=== PATIENT | male | born 1955 | race Caucasian/White ===

== ENCOUNTER 2017-10-25 10:00 | Inpatient (IN) | payer OTHER ==
[2017-10-31] MEDS ORDERED: Buffered Lidocaine 0.9% SYRIN* 5 ML/SYR SYRINGE INTRADERM ONE (11:22)
--- OUTSIDE RECORDS SUMMARY | 2017-11-01 06:09 | XMS REPORT ---
:1955 External Reference #:[id number] Author Organization [facility] Address [address] [address] Phone [phone] Care Team Providers Name Role Phone Michael Wang MD Primary Care Physician Unavailable Payers Type Date Identification Numbers Payment Provider Subscriber Commercial Policy Number: [id number] Alejo Lutz PayID: [id number] [address] [place] [address] Commercial Expires: 2017 Policy Number: [id number] Alejo Lutz Group Name: [id number] [address] PayID: [id number] [place] [address] Problems Date Description Provider Status Onset: 12/17/2014 Chronic obstructive lung disease Alex Metzger M.D. Active Onset: 12/17/2014 Gastroesophageal reflux disease Alex Metzger M.D. Active Onset: 12/17/2014 Depressive disorder Alex Metzger M.D. Active Onset: 12/17/2014 Anxiety Alex Metzger M.D. Active Onset: 12/17/2014 Chronic back pain Alex Metzger M.D. Active Onset: 12/17/2014 Neck pain Alex Metzger M.D. Active Onset: 12/17/2014 Multiple joint pain Alex Metzger M.D. Active Onset: 06/25/2015 Cervical spondylosis without Jose Juan Tang M.D. Active myelopathy Onset: 06/25/2015 Lumbosacral spondylosis without Jose Juan Tang M.D. Active myelopathy Onset: 08/03/2017 Strain of musc/tend the rotator Faith Paul MD Active cuff of left shoulder, subs Onset: 09/13/2017 Disorder of shoulder Faith Paul MD Active Onset: 09/13/2017 Localized, primary osteoarthritis Faith Paul MD Active of the shoulder region Onset: 09/13/2017 Low back pain Faith Paul MD Active Onset: 09/28/2017 Thoracic and lumbosacral neuritis Michael Wang M.D. Active Onset: 09/28/2017 Chest pain Michael Wang M.D. Active Onset: 09/28/2017 Recurrent major depressive episodes Michael Wang M.D. Active Onset: 10/10/2017 Lumbar spondylolisthesis Marla Cason MD Active Onset: 10/10/2017 Tobacco user Marla Cason MD Active Onset: 10/25/2017 Anxiety state Doyle Ureña M.D. Active Family History Date Family Member(s) Problem(s) Comments General Heart Disease : (age 61 Father due to Heart Years) attack : (age 89 Mother due to Old age? Years) Onset: (10/18/2017) Siblings 5 3 brothers, 2 sisters no premature cad. 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 smokes every day Recreational Drug Use Current Drug User Daily Caffeine Consumes on average 2 cups of regular coffee per day Exercise Type/Frequency Streching back General Hx Text raised 5 adopted children/grown. rents a room from friends 2017 Allergies, Adverse Reactions, Alerts Date Description Reaction Status Severity Comments 11/25/2014 NKDA active Medications Medication Date Status Form Strength Qnty SIG Indications Ordering Provider Tramadol HCL Active Tablets 50mg 30tabs 1 tab M51.16 Michael 017 evening and Kathleen, hs prn M.D. Sertraline 08/01/2 Active Tablets 25mg 60tabs 2 tab daily F43.23 Zsofia HCL 017 Angel, GEOSCIENCE LABORATORY TECHNICIAN Diclofenac 10/25/2 Active Gel 1% 100gm apply 4 M25.519 Zsofia Sodium 017 grams on Angel, shoulders GEOSCIENCE LABORATORY TECHNICIAN twice daily Tylenol Active Tablets 325mg 120tabs 2 tablets M54.5 Weston 016 every 4 Portuguese, PAPER WINDER hours as needed pain Naproxen Active Tablets 500mg 60tabs 1 tablet by M54.9 Emerson 015 mouth twice Pachikara, a day with M.D. foods as needed pain M54.5 Omeprazole 12/17/2014 Active Capsules 20mg 30caps take one K21.[address] capsule by Portuguese, mouth PAPER WINDER every day prn Meclizine HCL 04/24/2016 - Hx Tablets 25mg 30tabs 1 tablet H81.10 Weston 11/23/2016 every 6 Portuguese, hours as PAPER WINDER needed Sertraline HCL 04/24/2016 - Hx Tablets 25mg 60tabs Not taking F33.9 Weston 11/23/2016 1 by mouth Portuguese, every day PAPER WINDER x 1 week then 2 tab daily Cheratussin ac 04/22/2015 - Hx Syrup 100-10 240ml 1-2 786.2 Weston 05/06/2015 mg/5ML teaspoon Portuguese, by mouth PAPER WINDER every 4 to 6 hours as needed cough Cetirizine HCL 04/22/2015 - Hx Chewtabs 10mg 30units 1 tablet 786.2 Weston 01/10/2016 by mouth Portuguese, daily in PAPER WINDER the morning Tramadol HCL 12/31/2014 - Hx Tablets 50mg 30tabs 1 by mouth 724.5 Alex 01/20/2015 twice a Metzger, day, as M.D. needed Spiriva 12/17/2014 - Hx Capsules 18mcg 60caps 1 puff by 496 Alex Handihaler 01/10/2016 mouth Metzger, daily M.D. Proair HFA 12/17/2014 - Hx Aerosol 108(90 1units 2 puffs by 496 Alex 01/10/2016 Base) mouth Metzger, mcg/Ac every 4 M.D. t hours as needed Cyclobenzaprine 12/17/2014 - Hx Tablets 10mg 45tabs one by 724.5 Alex HCL 04/24/2016 mouth Metzger, three M.D. times a day as needed spasm 2 11/25/2014 - Hx Tablets 500mg 60tabs 1 tablet Erica 12/16/2014 with food Dwaine, by mouth M.D. twice a day Naproxen 11/25/2014 - Hx Tablets 500mg 60tabs 1 tablet Erica 12/31/2014 with food Dwaine, by mouth M.D. twice a day Naproxen 11/25/2014 - Hx Tablets 500mg 60tabs 1 by mouth Erica 12/31/2014 twice a Dwaine, day as M.D. needed Oxycodone HCL - Hx Unknown 12/16/2014 Naproxen - Hx Tablets 500mg 1 tablet Unknown 11/25/2014 with food by mouth twice a day Ibuprofen - Hx Capsules 200mg as needed M54.5 Unknown 07/21/2016 Medications Administered in Office Medication Date Status Form Strength Qnty SIG Indications Ordering Provider Technetium TC 10/23/ Administered Injection Inga 99M Tetrofosmin, 2017 Diogo, Per Unit Dose Up M.D. To 40 Millicuries Technetium TC 10/23/ Administered Injection Inga 99M Tetrofosmin, 2018 Fillmore, Per Unit Dose Up M.D. To 40 Millicuries Triamcinolone 08/03/ Administered Injection Zaneb (Kenalog) 2016 MD Humberto Immunizations CPT Code Status Date Vaccine Lot # [id number] Given 09/28/2017 Influenza Virus Vaccine, Quadrivalent, Split, [id number] Preservative Free [id number] Given 12/31/2014 Pneumonia Vaccine [id number] Vital Signs Date Vital Result Comment 10/25/2017 Height 72 inches 6'0" Weight 169.00 lb Heart Rate 67 /min BP Systolic Sitting 114 mmHg BP Diastolic Sitting 72 mmHg Body Temperature 96.3 F O2 % BldC Oximetry 94 % BMI (Body Mass Index) 22.9 kg/m2 10/18/2017 Height 72 inches 6'0" Weight 167.00 lb Heart Rate 72 /min BP Systolic Sitting 118 mmHg LA, reg BP Diastolic Sitting 78 mmHg LA, reg BMI (Body Mass Index) 22.6 kg/m2 10/10/2017 Height 72 inches 6'0" Weight 168.00 lb Heart Rate 72 /min BP Systolic Sitting 130 mmHg BP Diastolic Sitting 82 mmHg Pain Level 2 BMI (Body Mass Index) 22.8 kg/m2 09/28/2017 Heart Rate 66 /min BP Systolic Sitting 126 mmHg BP Diastolic Sitting 82 mmHg Body Temperature 96.9 F O2 % BldC Oximetry 95 % 09/28/2017 Weight 168.50 lb 09/18/2017 Height 72 inches 6'0" Weight 170.00 lb Heart Rate 91 /min BP Systolic Sitting 128 mmHg BP Diastolic Sitting 78 mmHg Pain Level 6 BMI (Body Mass Index) 23.1 kg/m2 09/13/2017 Height 72 inches 6'0" Weight 171.00 lb per pt Heart Rate 66 /min reg BP Systolic Sitting 112 mmHg Rue, reg cuff BP Diastolic Sitting 76 mmHg Rue, reg cuff Respiratory Rate 16 /min Body Temperature 97.3 F tympanic Pain Level 7 ledft shoulder BMI (Body Mass Index) 23.2 kg/m2 2017 Height 72 inches 6'0" Weight 172.00 lb Heart Rate 68 /min BP Systolic Sitting 98 mmHg LA reg cuff BP Diastolic Sitting 66 mmHg LA reg cuff Body Temperature 98.2 F O2 % BldC Oximetry 95 % BMI (Body Mass Index) 23.3 kg/m2 08/03/2017 Height 72 inches 6'0" Weight 176.00 lb BP Systolic 130 mmHg BP Diastolic 82 mmHg Respiratory Rate 20 /min Pain Level 8 BMI (Body Mass Index) 23.9 kg/m2 08/01/2017 Weight 176.00 lb Heart Rate 69 /min BP Systolic Sitting 120 mmHg BP Diastolic Sitting 80 mmHg Body Temperature 97.5 F O2 % BldC Oximetry 98 % 11/23/2016 Height 72 inches 6'0" Weight 171.50 lb Heart Rate 84 /min BP Systolic Sitting 106 mmHg BP Diastolic Sitting 78 mmHg Body Temperature 97.5 F O2 % BldC Oximetry 98 % BMI (Body Mass Index) 23.3 kg/m2 07/21/2016 Height 72 inches 6'0" Weight 178.38 lb Heart Rate 74 /min BP Systolic Sitting 108 mmHg BP Diastolic Sitting 90 mmHg Body Temperature 98.3 F O2 % BldC Oximetry 98 % BMI (Body Mass Index) 24.2 kg/m2 04/24/2016 Height 72 inches 6'0" Weight 184.00 lb Heart Rate 86 /min BP Systolic Sitting 130 mmHg BP Diastolic Sitting 80 mmHg BP Systolic Standing 112 mmHg BP Diastolic Standing 78 mmHg BP Systolic Lying Down 110 mmHg BP Diastolic Lying Down 82 mmHg O2 % BldC Oximetry 98 % BMI (Body Mass Index) 25.0 kg/m2 01/10/2016 Height 72 inches 6'0" Weight 188.00 lb Heart Rate 82 /min BP Systolic Sitting 106 mmHg BP Diastolic Sitting 78 mmHg Body Temperature 98.8 F O2 % BldC Oximetry 94 % BMI (Body Mass Index) 25.5 kg/m2 06/25/2015 Height 72 inches 6'0" Weight 173.00 lb Heart Rate 82 /min BP Systolic Sitting 136 mmHg BP Diastolic Sitting 80 mmHg Pain Level 5 back BMI (Body Mass Index) 23.5 kg/m2 06/08/2015 Height 72 inches 6'0" Weight 174.50 lb Heart Rate 79 /min BP Systolic Sitting 138 mmHg BP Diastolic Sitting 78 mmHg Body Temperature 97.5 F O2 % BldC Oximetry 97 % BMI (Body Mass Index) 23.7 kg/m2 04/22/2015 Height 72 inches 6'0" Weight 173.25 lb Heart Rate 94 /min BP Systolic Sitting 112 mmHg BP Diastolic Sitting 80 mmHg Body Temperature 99.9 F O2 % BldC Oximetry 93 % BMI (Body Mass Index) 23.5 kg/m2 04/12/2015 Height 72 inches 6'0" Weight 176.00 lb Heart Rate 88 /min BP Systolic Sitting 118 mmHg BP Diastolic Sitting 70 mmHg O2 % BldC Oximetry 97 % BMI (Body Mass Index) 23.9 kg/m2 03/02/2015 Height 72 inches 6'0" Weight 176.38 lb Heart Rate 80 /min BP Systolic Sitting 110 mmHg BP Diastolic Sitting 68 mmHg Body Temperature 97.3 F O2 % BldC Oximetry 95 % BMI (Body Mass Index) 23.9 kg/m2 01/20/2015 Weight 175.00 lb Heart Rate 84 /min BP Systolic Sitting 128 mmHg BP Diastolic Sitting 84 mmHg Body Temperature 97.7 F O2 % BldC Oximetry 97 % 12/31/2014 Height 72 inches 6'0" Weight 170.12 lb Heart Rate 68 /min BP Systolic Sitting 122 mmHg BP Diastolic Sitting 72 mmHg O2 % BldC Oximetry 98 % BMI (Body Mass Index) 23.1 kg/m2 12/17/2014 Height 72 inches 6'0" Weight 175.25 lb Heart Rate 60 /min BP Systolic Sitting 130 mmHg BP Diastolic Sitting 76 mmHg Body Temperature 97.1 F BMI (Body Mass Index) 23.8 kg/m2 11/25/2014 Height 72 inches 6'0" Weight 160.00 lb Heart Rate 70 /min BP Systolic 103 mmHg BP Diastolic 67 mmHg BMI (Body Mass Index) 21.7 kg/m2 Results Test Date Test Result H/L Range Note CBC No Diff 10/19/2017 White Blood Count 9.6 10^3/uL 3.5-10.8 Red Blood Count 4.72 10^6/uL 4.0-5.4 Hemoglobin 14.6 g/dL 14.0-18.0 Hematocrit 44 % 42-52 Mean Corpuscular Volume 93 fL 80-94 Mean Corpuscular Hemoglobin 31 pg 27-31 Mean Corpuscular HGB Conc 33 g/dL 31-36 Red Cell Distribution Width 14 % 10.5-15 Platelet Count 186 10^3/uL 150-450 Mean Platelet Volume 10 um3 7.4-10.4 Inr/Protime 10/19/2017 Inr 1.03 High 0.77-1.02 Laboratory test finding 10/19/2017 Partial Thrombo Time 33.1 seconds 26.0 -36.3 PTT Basic Metabolic Panel 10/19/2017 Sodium 140 mmol/L 133-145 Potassium 3.8 mmol/L 3.5-5.0 Chloride 105 mmol/L 101-111 Co2 Carbon Dioxide 29 mmol/L 22-32 Anion Gap 6 mmol/L 2-11 Glucose 95 mg/dL 70-100 Blood Urea Nitrogen 18 mg/dL 6-24 Creatinine 0.99 mg/dL 0.67-1.17 BUN/Creatinine Ratio 18.2 8-20 Calcium 9.4 mg/dL 8.6-10.3 Egfr Non- 76.3 >60 Egfr 98.2 >60 1 Laboratory test finding 10/19/2017 TSH (Thyroid Stim Horm) 0.66 mcIU/mL 0.34-5.60 Type & Screen 10/19/2017 Patient Blood Type A Positive Antibody Screen NEGATIVE Laboratory test finding 10/02/2017 PSA Screening 2.127 ng/mL 0-4.000 2 Lipid Profile (Trig/Chol/HDL) 10/02/2017 Triglycerides 65 mg/dL 3 Cholesterol 192 mg/dL 4 HDL Cholesterol 48.3 mg/dL 5 LDL Cholesterol 131 mg/dL 6 Laboratory test finding 10/02/2017 TSH (Thyroid Stim Horm) 2.06 mcIU/mL 0.34-5.60 7 Comp Metabolic Panel 10/02/2017 Sodium 139 mmol/L 133-145 Potassium 4.0 mmol/L 3.5-5.0 Chloride 103 mmol/L 101-111 Co2 Carbon Dioxide 30 mmol/L 22-32 Anion Gap 6 mmol/L 2-11 Glucose 107 mg/dL High 70-100 Blood Urea Nitrogen 18 mg/dL 6-24 Creatinine 0.88 mg/dL 0.67-1.17 BUN/Creatinine Ratio 20.5 High 8-20 Calcium 9.6 mg/dL 8.6-10.3 Total Protein 7.0 g/dL 6.4-8.9 Albumin 4.2 g/dL 3.2-5.2 Globulin 2.8 g/dL 2-4 Albumin/Globulin Ratio 1.5 1-3 Total Bilirubin 0.80 mg/dL 0.2-1.0 Alkaline Phosphatase 53 U/L 34-104 Alt 16 U/L 7-52 Ast 19 U/L 13-39 Egfr Non- 87.5 >60 Egfr 112.5 >60 8 Creatinine 04/13/2015 Creatinine 0.90 mg/dL 0.67-1.17 Egfr Non- 86.1 >60 Egfr 110.7 >60 9 Laboratory test 04/13/2015 Blood Urea Nitrogen 15 mg/dL 6-24 finding BUN Laboratory test 03/19/2015 Urine Culture And SEE RESULT 10 finding Sensitivities BELOW Laboratory test 01/15/2015 Activated Partial 34.3 seconds 26.0-36.3 finding Thrombo Time Inr/Protime 01/15/2015 Inr 0.97 0.78-1.07 CBC Auto Diff 01/15/2015 White Blood Count 19.1 10^3/uL High 4.8-10.8 Red Blood Count 5.88 10^6/uL High 4.0-5.4 Hemoglobin 18.3 g/dL High 14.0-18.0 Hematocrit 55 % High 42-52 Mean Corpuscular Volume 94 fL 80-94 Mean Corpuscular Hemoglobin 31 pg 27-31 Mean Corpuscular HGB Conc 33 g/dL 31-36 Red Cell Distribution Width 13 % 10.5-15 Platelet Count 221 10^3/uL 150-450 Mean Platelet Volume 9 um3 7.4-10.4 Abs Neutrophils 16.6 10^3/uL High 1.5-7.7 Abs Lymphocytes 1.2 10^3/uL 1.0-4.8 Abs Monocytes 1.1 10^3/uL High 0-0.8 Abs Eosinophils 0.1 10^3/uL 0-0.6 Abs Basophils 0.1 10^3/uL 0-0.2 Abs Nucleated RBC 0 10^3/uL Granulocyte % 87.0 % High 38-83 Lymphocyte % 6.5 % Low 25-47 Monocyte % 5.5 % 1-9 Eosinophil % 0.5 % 0-6 Basophil % 0.5 % 0-2 Nucleated Red Blood Cells % 0 Comp Metabolic Panel 01/15/2015 Sodium 135 mmol/L 133-145 Potassium 4.0 mmol/L 3.5-5.0 Chloride 99 mmol/L Low 101-111 Co2 Carbon Dioxide 27 mmol/L 22-32 Anion Gap 9 mmol/L 2-11 Glucose 138 mg/dL High 70-100 Blood Urea Nitrogen 21 mg/dL 6-24 Creatinine 1.29 mg/dL High 0.67-1.17 BUN/Creatinine Ratio 16.3 8-20 Calcium 10.6 mg/dL High 8.6-10.3 Total Protein 8.3 g/dL 6.4-8.9 Albumin 4.9 g/dL 3.2-5.2 Globulin 3.4 g/dL 2-4 Albumin/Globulin Ratio 1.4 1-3 Total Bilirubin 1.00 mg/dL 0.2-1.0 Alkaline Phosphatase 71 U/L 34-104 Alt 58 U/L High 7-52 Ast 34 U/L 13-39 Egfr Non- 56.8 >60 Egfr 73.1 >60 11 Stool For Blood 01/15/2015 Stool Occult Blood (SEE NOTE) 12 Urine Culture And 01/15/2015 Urine Culture (SEE NOTE) 13 Sensitivities Urine Drug SCR ED 01/15/2015 Amphetamine Ur None Detected None Detect & Pain Clinic Screen Barbiturates Urine Screen None Detected None Detect Benzodiazepine Urine Screen None Detected None Detect Urine Cannabinoids Screen Presumptive Posi <SEE NOTE> None Detect 14 Urine Cocaine Screen None Detected None Detect Urine Opiates Screen None Detected None Detect Urine Phencyclidine Screen None Detected None Detect 15 Urinalysis Profile 01/15/2015 Urine Color Yellow Urine Appearance Cloudy Urine Specific [place] 1.020 1.010-1.030 Urine pH 5.0 5-9 Urine Urobilinogen Negative Negative Urine Ketones Trace Negative Urine Protein Negative Negative Urine Leukocytes Negative Negative Urine Blood 1+ Negative Urine Nitrite Negative Negative Urine Bilirubin Negative Negative Urine Glucose Negative Negative Urine White Blood Cell Trace(0-5/hpf) Absent Urine Red Blood Cell 2+(6-10/hpf) Absent Urine Bacteria Absent Absent Urine Hyaline Casts Present Absent Laboratory test finding 01/15/2015 Creatine Kinase 71 U/L 10-223 Troponin I 0.00 ng/mL <0.03 16 Lactic Acid 2.0 mmol/L 0.5-2.2 Lipase 24 U/L 11.0-82.0 Comp Metabolic Panel 12/31/2014 Sodium 138 mmol/L 133-145 Potassium 4.3 mmol/L 3.5-5.0 Chloride 106 mmol/L 101-111 Co2 Carbon Dioxide 31 mmol/L 22-32 Anion Gap 1 mmol/L Low 2-11 Glucose 102 mg/dL High 70-100 Blood Urea Nitrogen 23 mg/dL 6-24 Creatinine 0.92 mg/dL 0.67-1.17 BUN/Creatinine Ratio 25.0 High 8-20 Calcium 9.4 mg/dL 8.6-10.3 Total Protein 6.3 g/dL Low 6.4-8.9 Albumin 4.2 g/dL 3.2-5.2 Globulin 2.1 g/dL 2-4 Albumin/Globulin Ratio 2.0 1-3 Total Bilirubin 0.30 mg/dL 0.2-1.0 Alkaline Phosphatase 47 U/L 34-104 Alt 44 U/L 7-52 Ast 29 U/L 13-39 Egfr Non- 83.9 >60 Egfr 107.9 >60 17 Laboratory test finding 12/17/2014 Erythrocyte Sed Rate 8 mm/Hr 0-20 Emmanuelle (Anti-Nuclear AB) Screen Negative Negative Rheumatoid Factor <15 IU/mL <15 18 Urinalysis Profile 12/17/2014 Urine Color Yellow Urine Appearance Clear Urine Specific [place] 1.014 1.010-1.030 Urine pH 5.0 5-9 Urine Urobilinogen Negative Negative Urine Ketones Negative Negative Urine Protein Negative Negative Urine Leukocytes Negative Negative Urine Blood 1+ Negative Urine Nitrite Negative Negative Urine Bilirubin Negative Negative Urine Glucose Negative Negative Urine White Blood Cell Absent Absent Urine Red Blood Cell 1+(3-5/hpf) Absent Urine Bacteria Absent Absent Laboratory test finding 12/17/2014 TSH (Thyroid Stimulating 1.04 IU/mL 0.34-5.60 Horm) CBC Auto Diff 12/17/2014 White Blood Count 4.8 10^3/uL 4.8-10.8 Red Blood Count 4.70 10^6/uL 4.0-5.4 Hemoglobin 14.9 g/dL 14.0-18.0 Hematocrit 45 % 42-52 Mean Corpuscular Volume 95 fL High 80-94 Mean Corpuscular Hemoglobin 32 pg High 27-31 Mean Corpuscular HGB Conc 33 g/dL 31-36 Red Cell Distribution Width 13 % 10.5-15 Platelet Count 147 10^3/uL Low 150-450 Mean Platelet Volume 9 um3 7.4-10.4 Abs Neutrophils 3.1 10^3/uL 1.5-7.7 Abs Lymphocytes 1.1 10^3/uL 1.0-4.8 Abs Monocytes 0.5 10^3/uL 0-0.8 Abs Eosinophils 0.1 10^3/uL 0-0.6 Abs Basophils 0 10^3/uL 0-0.2 Abs Nucleated RBC 0 10^3/uL Granulocyte % 64.7 % 38-83 Lymphocyte % 22.5 % Low 25-47 Monocyte % 10.9 % High 1-9 Eosinophil % 1.3 % 0-6 Basophil % 0.6 % 0-2 Nucleated Red Blood Cells % 0.1 1 Because ethnic data is not always readily available, this report includes an eGFR for both -Americans and non- Americans. The National Kidney Disease Education Program (NKDEP) does not endorse the use of the MDRD equation for patients that are not between the ages of 18 and 70, are , have extremes of body size, muscle mass, or nutritional status, or are non- or non-. According to the National Kidney Foundation, irrespective of diagnosis, the stage of the disease is based on the level of kidney function: Stage Description GFR(mL/min/1.73 m(2)) 1 Kidney damage with normal or decreased GFR 90 2 Kidney damage with mild decrease in GFR 60-89 3 Moderate decrease in GFR 30-59 4 Severe decrease in GFR 15-29 5 Kidney failure <15 (or dialysis) 2 Serum levels of PSA measured using the Jessica Glencoe DXI Hybritech immunoassay should not be interpreted as absolute evidence of the presence or absence of disease. The PSA value should be used in conjunction with other pertinent clinical diagnostic procedures. The values obtained with different assay methods or kits cannot be used interchangeably. 3 Desirable: <150 Borderline High: 150-199 High: 200-499 Very High: >500 4 Desirable: <200 Borderline High: 200-239 High: >239 5 Low: <40 Desirable: 40-60 High: >60 6 Desirable: <100 Near Optimal: 100-129 Borderline High: 130-159 High: 160-189 Very High: >189 7 FASTING 10 HOUR 8 Because ethnic data is not always readily available, this report includes an eGFR for both -Americans and non- Americans. The National Kidney Disease Education Program (NKDEP) does not endorse the use of the MDRD equation for patients that are not between the ages of 18 and 70, are , have extremes of body size, muscle mass, or nutritional status, or are non- or non-. According to the National Kidney Foundation, irrespective of diagnosis, the stage of the disease is based on the level of kidney function: Stage Description GFR(mL/min/1.73 m(2)) 1 Kidney damage with normal or decreased GFR 90 2 Kidney damage with mild decrease in GFR 60-89 3 Moderate decrease in GFR 30-59 4 Severe decrease in GFR 15-29 5 Kidney failure <15 (or dialysis) 9 Because ethnic data is not always readily available, this report includes an eGFR for both -Americans and non- Americans. The National Kidney Disease Education Program (NKDEP) does not endorse the use of the MDRD equation for patients that are not between the ages of 18 and 70, are , have extremes of body size, muscle mass, or nutritional status, or are non- or non-. According to the National Kidney Foundation, irrespective of diagnosis, the stage of the disease is based on the level of kidney function: Stage Description GFR(mL/min/1.73 m(2)) 1 Kidney damage with normal or decreased GFR 90 2 Kidney damage with mild decrease in GFR 60-89 3 Moderate decrease in GFR 30-59 4 Severe decrease in GFR 15-29 5 Kidney failure <15 (or dialysis) 10 SEE RESULT BELOW Name: MEHUL LUTZ : [address]: Alex Metzger MD Acct: [id number] Unit: [id number] AGE: 59 Location: LAB Re03/19/15 SEX: M Status: REG REF SPEC: [id number] LAZARA: 03/19/[address]: Alex Metzger MD REQ: [id number] RECD: 03/19/15 STATUS: COMP _ SOURCE: URINE SPDESC: ORDERED: Urine Culture Procedure Result Verified Site Urine Culture Final 03/21/15- 39 ML No Growth Day 2 (<1,000 CFU/mL) * ML - MAIN LAB ([facility]) . END OF REPORT * ML=Testing performed at Main Lab DEPARTMENT OF PATHOLOGY, [facility] [employer] [place] [id number] Bhanu Garcia M.D. Director [facility] # [id number] 11 Because ethnic data is not always readily available, this report includes an eGFR for both -Americans and non- Americans. The National Kidney Disease Education Program (NKDEP) does not endorse the use of the MDRD equation for patients that are not between the ages of 18 and 70, are , have extremes of body size, muscle mass, or nutritional status, or are non- or non-. According to the National Kidney Foundation, irrespective of diagnosis, the stage of the disease is based on the level of kidney function: Stage Description GFR(mL/min/1.73 m(2)) 1 Kidney damage with normal or decreased GFR 90 2 Kidney damage with mild decrease in GFR 60-89 3 Moderate decrease in GFR 30-59 4 Severe decrease in GFR 15-29 5 Kidney failure <15 (or dialysis) 12 RUN DATE: 01/15/15 [facility] LAB LIVE PAGE 1 RUN TIME: 9206 [facility] [employer] [place], [place] [address] Specimen Inquiry Name: MEHUL LUTZ : [address]: Malcom Vargas MD Acct: [id number] Unit: [id number] AGE: 59 Location: ED Re01/15/15 SEX: M Status: REG ER SPEC: [id number] LAZARA: 01/15/15-[address] [facility] [address]: Malcom Vargas MD REQ: [id number] RECD: 01/15/15-1319 STATUS: TRESA JOYNER DR: Alex Metzger MD _ SOURCE: STOOL SPDESC: ORDERED: Hemoccult Procedure Result Verified Site Stool Occult Blood Final 01/15/15- 1342 ML Stool Occult Blood Negative * ML - MAIN LAB ([facility]) . END OF REPORT * ML=Testing performed at Main Lab DEPARTMENT OF PATHOLOGY, [facility] [place], [place] [address] Bhanu Garcia M.D. Director [facility] # [id number] RUN DATE: 01/17/15 [facility] LAB LIVE PAGE 1 RUN TIME: 845 [facility] [employer] [place], [place] [address] Specimen Inquiry Name: MEHUL LUTZ : [address]: Malcom Vargas MD Acct: [id number] Unit: [id number] AGE: 59 Location: ED Re01/15/15 SEX: M Status: DEP ER SPEC: [id number] LAZARA: 01/15/15-[address]: Malcom Vargas MD REQ: [id number] RECD: 01/15/15-1799 STATUS: COMP BLAINE DR: Alex Metzger MD _ SOURCE: URINE SPDESC: ORDERED: Urine Culture Procedure Result Verified Site Urine Culture Final 01/17/15- 0845 ML Organism 1 ESCHERICHIA COLI Surprise Count 1-10,000 (Few) CFU/ML 1. ESCHERICHIA COLI M.I.C. RX --------- ------ Ampicillin >=32 R Cefazolin <=4 S Cefepime <=1 S Ceftriaxone <=1 S Ciprofloxacin <=0.25 S Gentamicin <=1 S Levofloxacin <=0.12 S Meropenem <=0.25 S Nitrofurantoin 64 I Tetracycline <=1 S Pipercillin/Tazobactam <=4 S Trimethoprim/Sulfamethoxazole <=20 S Amoxicillin/Clavulanic Acid 8 S Aztreonam <=1 S Contact the Microbiology Department for any additional antibiotic reporting. * ML - MAIN LAB ([facility]) . END OF REPORT * ML=Testing performed at Main Lab DEPARTMENT OF PATHOLOGY, [address] [place] [address] Bhanu Garcia M.D. Director [facility] # [id number] 14 Presumptive Positive 15 The urine specimen was tested at the listed cutoffs: Drug class test level (ng/mL) Amphetamines 500 Barbituates 200 Benzodiazepine metabolites 200 Cocaine metabolites 150 Cannabinoids 50 Opiates 300 Pcp 25 This is a screening procedure. Positive results are not confirmed. Specimen was received without chain of custody. Results should be used for medical purposes only. 16 Reference Range and Interpretation: TnI (ng/mL) Interpretation Less Than 0.03 ng/mL Not supportive of diagnosis of [place] 0.03 - 0.50 ng/mL Indeterminate: suggest serial studies if clinically indicated. Greater than 0.5 ng/mL Consistent with diagnosis of [place] 17 Because ethnic data is not always readily available, this report includes an eGFR for both -Americans and non- Americans. The National Kidney Disease Education Program (NKDEP) does not endorse the use of the MDRD equation for patients that are not between the ages of 18 and 70, are , have extremes of body size, muscle mass, or nutritional status, or are non- or non-. According to the National Kidney Foundation, irrespective of diagnosis, the stage of the disease is based on the level of kidney function: Stage Description GFR(mL/min/1.73 m(2)) 1 Kidney damage with normal or decreased GFR 90 2 Kidney damage with mild decrease in GFR 60-89 3 Moderate decrease in GFR 30-59 4 Severe decrease in GFR 15-29 5 Kidney failure <15 (or dialysis) 18 Test Performed by: [place] [id number] Floor Associate: Severino Thurman II, M.D., Ph.D. Procedures Date CPT Code Description Status 10/23/2017 37705 Myocardial Perfusion Imaging Tomographic (Spect) Completed Multiple Studies 10/18/2017 94231 EKG Tracing & Interpretation Completed 10/04/2017 09146 EKG Tracing & Interpretation Completed 10/02/2017 06374 Plethysmography Determination Lung Volumes & Per Completed Airway Resist 10/02/2017 33349 Pulmonary Function><Bronchodil Completed 08/03/2017 36005 Inject/Drain Joint/Bursa Major Completed 05/12/2015 83931 Pulmonary Function><Bronchodil Completed Encounters Type Date Location Provider CPT E/M Dx Office Visit 09/28/2017 9:00a [facility] Internal Michaelpilo Wang, [address]99 Z00.00 Medicine - [address] Philipp M51.16 R07.9 M75.42 F33.9 J44.9 F17.210 Z12.5 Z23 Z13.220 Office Visit 09/18/2017 2:30p [facility]surgery Services Vassilios 59546 M54.5 Of [facility] MD Kamla Office Visit 09/13/2017 11:30[place] [address] M75.42 Of [facility] M19.012 M54.5 Office Visit 2017 9:40a [facility] Internal Medicine BEBA Ryan [address]385 M75.42 - [address] M19.011 M19.012 F43.23 M25.511 Office Visit 08/03/2017 9:45a [facility] [place] [address] S46.012D [facility] M75.42 M19.012 Office Visit 08/01/2017 8:40a [facility] Internal Medicine BEBA Ryan 11828 M25.519 - [address] F43.23 M25.511 M25.512 Office Visit 11/23/2016 3:40p [facility] [place] [address] M70.872 Office Visit 07/21/2016 3:00p [facility] Internal [place] [address] Office Visit 04/24/2016 10:40a [facility] Internal Medicine María [place] [address] F33.9 Office Visit 01/10/2016 11:20a [facility] Internal Medicine María [place] [address] Office Visit 06/25/2015 1:40p [facility]surgery Services Of Jose Juan Tang, [address] 721.0 Gay Segal 721.3 Office Visit 06/08/2015 8:40a [facility] Internal Medicine Alex Metzger M.D. 84720 738.3 - [address] 723.1 724.5 719.41 305.1 733.90 724.2 Office Visit 04/22/2015 9:00a [facility] Internal Medicine - Weston BarrosoAGAPITO [address] 706.2 724.5 786.2 786.50 733.90 Office Visit 04/12/2015 4:00p [facility] Internal Medicine Alex Metzger M.D. 67659 738.3 - [address] 733.90 Office Visit 03/02/2015 8:40a [facility] Internal Medicine - Alex Metzger M.D. [address] 530.81 287.5 599.70 724.5 723.1 305.1 721.0 721.3 Office Visit 01/20/2015 8:40a [facility] Internal Medicine Alex Metzger M.D. 92208 787.91 - [address] 787.01 724.5 791.9 Office Visit 12/31/2014 9:00a [facility] Internal Medicine Alex Metzger M.D. [address] 530.81 287.5 599.70 311 300.00 305.1 722.4 722.51 V03.82 Office Visit 12/17/2014 9:20a [facility] Internal Medicine María Metzger M.D. [address] 530[address]81 724.5 723.1 719.45 311 300.00 305.20 305.1 724.2 Office Visit 11/25/2014 1:15p [facility] Of Erica Isidro M.D. 73448 715.16 [facility] 844.9 Plan of Care Future Appointment(s):11/01/2017 10:00 am - Marla Cason MD at [facility] Of [facility]11/23/2017 10:00 am - Michael Wang M.D. at [facility] Internal Medicine - [address]/15/2017 8:00 am - Faith Paul MD at [facility]10/25/2017 - Doyle Ureña M.D.Z01.810 Encounter for preprocedural cardiovascular ljdtdlzcavxL68.26 Other spondylosis with radiculopathy, lumbar hpnbkyT69.9 Gastro-esophageal reflux disease without fyusnzekvvuK47.9 Anxiety disorder, sfhkgiqhsysI96.210 Nicotine dependence, cigarettes, uncomplicated
--- OUTSIDE RECORDS SUMMARY | 2017-11-01 06:09 | XMS REPORT ---
:1955 External Reference #:[id number] Author Organization [facility] Address [address] [address] Phone [phone] Care Team Providers Name Role Phone Michael Wang MD Primary Care Physician Unavailable Payers Type Date Identification Numbers Payment Provider Subscriber Commercial Policy Number: [id number] lAejo Horne PayID: [id number] [address] [place] [address] Commercial Expires: 2017 Policy Number: [id number] Alejo Horne Group Name: [id number] [address] PayID: [id number] [place] [address] Problems Date Description Provider Status Onset: 12/17/2014 [...] 10/10/2017 Tobacco user Marla Cason MD Active Family History Date Family Member(s) Problem(s) Comments General Heart Disease : (age 61 Father due to Heart Years) attack : (age 89 Mother due to Old age? Years) Onset: (10/18/2017) Siblings 5 3 brothers, 2 sisters no premature cad. 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 foods as needed pain M54.5 Omeprazole 12/17/2014 Active Capsules 20mg 30caps take one K21.[address] capsule by [place], mouth REGULATOR INSPECTOR every day prn Meclizine HCL 04/24/2016 - Hx Tablets 25mg 30tabs 1 tablet H81.10 [place] 11/23/2016 every 6 [place], hours as REGULATOR INSPECTOR needed Sertraline HCL 04/24/2016 - Hx Tablets 25mg 60tabs Not taking F33.9 [place] 11/23/2016 1 by mouth [place], every day REGULATOR INSPECTOR x 1 week then 2 tab daily Cheratussin ac 04/22/2015 - Hx Syrup 100-10 240ml 1-2 786.2 [place] 05/06/2015 mg/5ML teaspoon [place], by mouth REGULATOR INSPECTOR every 4 to 6 hours as needed cough Cetirizine HCL 04/22/2015 - Hx Chewtabs 10mg 30units 1 tablet 786.2 [place] 01/10/2016 by mouth [place], daily in REGULATOR INSPECTOR the morning Tramadol HCL 12/31/2014 - Hx [...] Form Strength Qnty SIG Indications Ordering Provider Triamcinolone Injection Zaneb (Kenalog) 2016 MD Humberto Immunizations CPT Code Status Date Vaccine Lot # [id number] Given 09/28/2017 Influenza Virus Vaccine, Quadrivalent, Split, [id number] Preservative Free 15886 Given 12/31/2014 Pneumonia Vaccine [id number] Vital Signs Date Vital Result Comment 10/18/2017 Height 72 inches 6'0" Weight 167.00 [...] Test Date Test Result H/L Range Note Laboratory test finding 10/02/2017 PSA Screening 2.127 ng/mL 0-4.000 1 Lipid Profile (Trig/Chol/HDL) 10/02/2017 Triglycerides 65 mg/dL 2 Cholesterol 192 mg/dL 3 HDL Cholesterol 48.3 mg/dL 4 LDL Cholesterol 131 mg/dL 5 Laboratory test finding 10/02/2017 TSH (Thyroid Stim Horm) 2.06 mcIU/mL 0.34-5.60 6 Comp Metabolic Panel 10/02/2017 Sodium 139 mmol/L [...] Egfr Non- 87.5 >60 Egfr 112.5 >60 7 Laboratory test finding 04/13/2015 Blood Urea Nitrogen BUN 15 mg/dL 6-24 Creatinine 04/13/2015 Creatinine 0.90 mg/dL 0.67-1.17 Egfr Non- 86.1 >60 Egfr 110.7 >60 8 Laboratory test 03/19/2015 Urine Culture And SEE RESULT 9 finding Sensitivities BELOW CBC Auto Diff 01/15/2015 White Blood Count [...] 0-2 Nucleated Red Blood Cells % 0 Stool For Blood 01/15/2015 Stool Occult Blood (SEE NOTE) 10 Urine Culture And 01/15/2015 Urine Culture (SEE NOTE) 11 Sensitivities Urine Drug SCR ED 01/15/2015 Amphetamine Ur None Detected None Detect & Pain Clinic Screen Barbiturates Urine Screen None Detected None Detect Benzodiazepine Urine Screen None Detected None Detect Urine Cannabinoids Screen Presumptive Posi <SEE NOTE> None Detect 12 Urine Cocaine Screen None Detected None Detect Urine Opiates Screen None Detected None Detect Urine Phencyclidine Screen None Detected None Detect 13 Urinalysis Profile 01/15/2015 Urine Color Yellow Urine Appearance Cloudy Urine Specific Gilbert 1.020 1.010-1.030 Urine pH 5.0 5-9 Urine Urobilinogen Negative Negative Urine Ketones Trace Negative Urine Protein Negative Negative Urine Leukocytes Negative Negative Urine Blood 1+ Negative Urine Nitrite Negative Negative Urine Bilirubin Negative Negative Urine Glucose Negative Negative Urine White Blood Cell Trace(0-5/hpf) Absent Urine Red Blood Cell 2+(6-10/hpf) Absent Urine Bacteria Absent Absent Urine Hyaline Casts Present Absent Inr/Protime 01/15/2015 Inr 0.97 0.78-1.07 Laboratory test finding 01/15/2015 Creatine Kinase 71 U/L 10-223 Troponin I 0.00 ng/mL <0.03 14 Lactic Acid 2.0 mmol/L 0.5-2.2 Lipase 24 U/L 11.0-82.0 Comp Metabolic Panel 01/15/2015 Sodium 135 mmol/L [...] Egfr Non- 56.8 >60 Egfr 73.1 >60 15 Laboratory test finding 01/15/2015 Activated Partial 34.3 seconds 26.0- 36.3 Thrombo Time Comp Metabolic Panel 12/31/2014 Sodium 138 mmol/L [...] Egfr Non- 83.9 >60 Egfr 107.9 >60 16 Laboratory test finding 12/17/2014 TSH (Thyroid Stimulating 1.04 IU/mL 0.34-5.60 Horm) Urinalysis Profile 12/17/2014 Urine Color Yellow Urine Appearance Clear Urine Specific Gilbert 1.014 1.010-1.030 Urine pH 5.0 5-9 Urine Urobilinogen Negative Negative Urine Ketones Negative Negative Urine Protein Negative Negative Urine Leukocytes Negative Negative Urine Blood 1+ Negative Urine Nitrite Negative Negative Urine Bilirubin Negative Negative Urine Glucose Negative Negative Urine White Blood Cell Absent Absent Urine Red Blood Cell 1+(3-5/hpf) Absent Urine Bacteria Absent Absent Laboratory test finding 12/17/2014 Erythrocyte Sed Rate 8 mm/Hr 0-20 Emmanuelle (Anti-Nuclear AB) Screen Negative Negative Rheumatoid Factor <15 IU/mL <15 17 CBC Auto Diff 12/17/2014 White Blood Count [...] Nucleated Red Blood Cells % 0.1 1 Serum levels of PSA measured using the [employer] DXI Hybritech immunoassay should not be interpreted as absolute evidence of the presence or absence of disease. The PSA value should be used in conjunction with other pertinent clinical diagnostic procedures. The values obtained with different assay methods or kits cannot be used interchangeably. 2 Desirable: <150 Borderline High: 150-199 High: 200-499 Very High: >500 3 Desirable: <200 Borderline High: 200-239 High: >239 4 Low: <40 Desirable: 40-60 High: >60 5 Desirable: <100 Near Optimal: 100-129 Borderline High: 130-159 High: 160-189 Very High: >189 6 FASTING 10 HOUR 7 Because ethnic data is not always readily [...] 15-29 5 Kidney failure <15 (or dialysis) 8 Because ethnic data is not always [...] 5 Kidney failure <15 (or dialysis) 9 SEE RESULT BELOW Name: MEHUL HORNE : [address]: Alex Metzger MD Acct: [id number] Unit: [id number] AGE: 59 Location: LAB Re03/19/15 SEX: M Status: REG REF SPEC: [id number] LAZARA: 03/19/[address]: Alex Metzger MD REQ: [id number] RECD: 03/19/15 STATUS: COMP _ SOURCE: URINE SPDESC: ORDERED: Urine Culture Procedure Result Verified Site Urine Culture Final 03/21/15- 938 ML No Growth Day 2 (<1,000 CFU/mL) * ML - [facility] . END OF REPORT * ML=Testing performed at Main Lab DEPARTMENT OF PATHOLOGY, [address] [place] [address] Bhanu Garcia M.D. Director [facility] # [id number] 10 RUN DATE: 01/15/15 [facility] LAB LIVE PAGE 1 RUN TIME: [address] [place] [address] Specimen Inquiry Name: NELDAMEHUL : [address]: Malcom Vargas MD Acct: [id number] Unit: [id number] AGE: 59 Location: ED Re01/15/15 SEX: M Status: REG ER SPEC: [id number] LAZARA: 01/15/15-1245 [facility] DR: Malcom Vargas MD REQ: [id number] RECD: 01/15/15-1320 STATUS: TRESA JOYNER DR: Alex Metzger MD _ [facility] ORDERED: Hemoccult Procedure Result Verified Site Stool Occult Blood Final 01/15/15- 1342 ML Stool Occult Blood Negative * ML - [facility] LAB ([facility]) . END OF REPORT * ML=Testing performed at Main Lab DEPARTMENT OF PATHOLOGY, Formerly named [facility] [place], [place] [address] Bhanu Garcia M.D. Director [facility] # [id number] 11 RUN DATE: 01/17/15 [facility] LAB LIVE PAGE 1 RUN TIME: 0846 Formerly named [facility] [place], [place] [address] Specimen Inquiry Name: MEHUL HORNE : [address]: Malcom Vargas MD Acct: [id number] Unit: [id number] AGE: 59 Location: ED Re01/15/15 SEX: M Status: DEP ER SPEC: [id number] LAZARA: 01/15/15-[address]: Malcom Vargas MD REQ: [id number] RECD: 01/15/15 STATUS: TERSA VALLADARES DR: Alex Metzger MD _ [facility] ORDERED: Urine Culture Procedure Result Verified Site Urine Culture Final 01/17/15- 0845 ML Organism 1 ESCHERICHIA COLI [place] Count 1-10,000 (Few) CFU/ML 1. ESCHERICHIA COLI [...] antibiotic reporting. * ML - MAIN LAB (PSYCHIATRIC) . END OF REPORT * ML=Testing performed at Main Lab DEPARTMENT OF PATHOLOGY, [address] [place] [address] Bhanu Garcia M.D. Director [facility] # [id number] 12 Presumptive Positive 13 The urine specimen was tested at the listed cutoffs: Drug class test level (ng/mL) Amphetamines 500 Barbituates 200 Benzodiazepine metabolites 200 Cocaine metabolites 150 Cannabinoids 50 Opiates 300 Pcp 25 This is a screening procedure. Positive results are not confirmed. Specimen was received without chain of custody. Results should be used for medical purposes only. 14 Reference Range and Interpretation: TnI (ng/mL) Interpretation Less Than 0.03 ng/mL Not supportive of diagnosis of [place] 0.03 - 0.50 ng/mL Indeterminate: suggest serial studies if clinically indicated. Greater than 0.5 ng/mL Consistent with diagnosis of [place] 15 Because ethnic data is not always readily [...] 15-29 5 Kidney failure <15 (or dialysis) 16 Because ethnic data is not always readily [...] 15-29 5 Kidney failure <15 (or dialysis) 17 Test Performed by: [address] [address] Editorial Manager: Severino Thurman II, M.D., Ph.D. Procedures Date CPT Code Description Status 10/18/2017 82183 EKG Tracing & Interpretation Completed 10/04/2017 10280 EKG Tracing & Interpretation Completed 10/02/2017 50477 Plethysmography Determination Lung Volumes & Per Completed Airway Resist 10/02/2017 81742 Pulmonary Function><Bronchodil Completed 08/03/2017 95062 Inject/Drain Joint/Bursa Major Completed 05/12/2015 62528 Pulmonary Function><Bronchodil Completed Encounters Type Date Location Provider CPT E/M Dx Office Visit 09/28/2017 9:00a [facility] Internal Michael Wang, [address]980 Z00.00 Medicine - [address] Zina.[facility] M51.16 R07.9 M75.42 F33.9 J44.9 F17.210 Z12.5 Z23 Z13.220 Office Visit 09/18/2017 2:30p Neurosurgery Services Sarasilmiah [address]377 M54.5 Of Gay Cason MD Office Visit 09/13/2017 11:30[place] [address] M75.42 Of CWilmerMWilmerAWilmer M19.012 M54.5 Office Visit 2017 9:40a [facility] Internal Medicine BEBA Ryan [address]36 M75.42 - [address] M19.011 M19.012 F43.23 M25.511 Office Visit 08/03/2017 9:45a [facility] [address] S46.012D KodyMMalka M75.42 M19.012 Office Visit 08/01/2017 8:40a [facility] Internal Medicine Corinne Ortiz, VENDOR QUALITY SUPERVISOR [address] M25.519 - [address] F43.23 M25.511 M25.512 Office Visit 11/23/2016 3:40p [facility] Internal Medicine - [place]on Barroso, AGAPIT[place] [address] M70.872 Office Visit 07/21/2016 3:00p [facility] Internal Medicine - [place]on Barroso, [place] [address] Office Visit 04/24/2016 10:40a [facility] Internal Medicine María Barroso, [place] [address] F33.9 Office Visit 01/10/2016 11:20a [facility] Internal Medicine María Barroso, [place] [address] Office Visit 06/25/2015 1:40p Neurosurgery Services Of Jose Juan Tang, [address] 721.0 Gay Segal 721.3 Office Visit 06/08/2015 8:40a [facility] Internal Medicine Alex Metzger M.D. 39067 738.3 - [address] 723.1 724.5 719.41 305.1 733.90 724.2 Office Visit 04/22/2015 9:00a [facility] Internal Medicine María [place] [address] 706.2 724.5 786.2 786.50 733.90 Office Visit 04/12/2015 4:00p [facility] Internal Medicine Alex Metzger M.D. 01361 738.3 - [address] 733.90 Office Visit 03/02/2015 8:40a [facility] Internal Medicine María Metzger M.D. [address] 530.81 287.5 599.70 724.5 723.1 305.1 721.0 721.3 Office Visit 01/20/2015 8:40a [facility] Internal Medicine Alex Metzger M.D. 83499 787.91 - [address] 787.01 724.5 791.9 Office Visit 12/31/2014 9:00a [facility] Internal Medicine - Alex Metzger M.D. [address] 530.81 287.5 599.70 311 300.00 305.1 722.4 722.51 V03.82 Office Visit 12/17/2014 9:20a [facility] Internal Medicine - Alex Metzger M.D. [address] 530.81 724.5 723.1 719.45 311 300.00 305.20 305.1 724.2 Office Visit 11/25/2014 1:15p [facility] Of Erica Isidro M.D. 46923 715.16 C.[facility] 844.9 Plan of Care Future Appointment(s):10/19/2017 10:30 am - Michelet Laws M.D. at [facility]10/25/2017 9:30 am - Marla Cason MD at [facility]11/23/2017 10:00 am - Michael Wang M.D. at [facility] Internal Medicine - [address]/15/2017 8:00 am - Faith Paul MD at [facility]10/18/2017 - Michelet Laws M.D.R07.9 Chest pain, unspecifiedNew Orders:EchocardiogramLexiscan Nuclear ObgfhevP06.00 Pure hypercholesterolemia, ofylmdidzcfP48.0 Tobacco useRecommendations:discontinue tobacco use
--- OUTSIDE RECORDS SUMMARY | 2017-11-01 06:10 | XMS REPORT ---
:1955 External Reference #:[id number] Author Organization [facility] Address [address] [address] Phone [phone] Care Team Providers Name Role Phone Michael Wang MD Primary Care Physician Unavailable Payers Type Date Identification Numbers Payment Provider Subscriber Commercial Policy Number: [id number] Alejo Lutz PayID: [id number] [address] [place] [address] Commercial Expires: 2017 Policy Number: [id number] Alejo Lutz Group Name: [id number] [address] PayID: [id number] [place] [address] Problems Date Description Provider Status Onset: 12/17/2014 [...] Comments General Heart Disease : (age 60 Years) Father due to Heart attack : (age 89 Years) Mother due to Old age? 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 foods as needed pain M54.5 Omeprazole 12/17/2014 Active Capsules 20mg 30caps take one K21.[address] capsule by [place], mouth [employer] UP OPERATOR every day prn Meclizine HCL 04/24/2016 - Hx Tablets 25mg 30tabs 1 tablet H81.10 [place] 11/23/2016 every 6 [place], hours as [employer] UP OPERATOR needed Sertraline HCL 04/24/2016 - Hx Tablets 25mg 60tabs Not taking F33.9 [place] 11/23/2016 1 by mouth [place], every day [employer] UP OPERATOR x 1 week then 2 tab daily Cheratussin ac 04/22/2015 - Hx Syrup 100-10 240ml 1-2 786.2 [place]on 05/06/2015 mg/5ML teaspoon [place], by mouth [employer] UP OPERATOR every 4 to 6 hours as needed cough Cetirizine HCL 04/22/2015 - Hx Chewtabs 10mg 30units 1 tablet 786.2 [place] 01/10/2016 by mouth [place], daily in [employer] UP OPERATOR the morning Tramadol HCL 12/31/2014 - Hx [...] CPT Code Status Date Vaccine Lot # [id number] Given 09/28/2017 Influenza Virus Vaccine, Quadrivalent, Split, [id number] Preservative Free [id number] Given 12/31/2014 Pneumonia Vaccine [id number] Vital Signs Date Vital Result Comment 10/10/2017 Height 72 inches 6'0" Weight 168.00 [...] Non- 87.5 >60 Egfr 112.5 >60 7 Creatinine 04/13/2015 Creatinine 0.90 mg/dL 0.67-1.17 Egfr Non- 86.1 >60 Egfr 110.7 >60 8 Laboratory test 04/13/2015 Blood Urea Nitrogen BUN 15 mg/dL 6-24 finding Laboratory test 03/19/2015 Urine Culture And SEE RESULT BELOW 9 finding Sensitivities Urinalysis Profile 01/15/2015 Urine Color Yellow Urine Appearance Cloudy Urine Specific [place] 1.020 1.010-1.030 Urine pH 5.0 5-9 Urine Urobilinogen Negative Negative Urine Ketones Trace Negative Urine Protein Negative Negative Urine Leukocytes Negative Negative Urine Blood 1+ Negative Urine Nitrite Negative Negative Urine Bilirubin Negative Negative Urine Glucose Negative Negative Urine White Blood Cell Trace(0-5/hpf) Absent Urine Red Blood Cell 2+(6-10/hpf) Absent Urine Bacteria Absent Absent Urine Hyaline Casts Present Absent Urine Culture And 01/15/2015 Urine Culture (SEE NOTE) 10 Sensitivities Stool For Blood 01/15/2015 Stool Occult Blood (SEE NOTE) 11 CBC Auto Diff 01/15/2015 White Blood Count [...] 0-2 Nucleated Red Blood Cells % 0 Inr/Protime 01/15/2015 Inr 0.97 0.78-1.07 Laboratory test finding 01/15/2015 Activated Partial 34.3 seconds 26.0- 36.3 Thrombo Time Comp Metabolic Panel 01/15/2015 Sodium 135 mmol/L [...] Egfr Non- 56.8 >60 Egfr 73.1 >60 12 Laboratory test finding 01/15/2015 Creatine Kinase 71 U/L 10-223 Troponin I 0.00 ng/mL <0.03 13 Lactic Acid 2.0 mmol/L 0.5-2.2 Lipase 24 U/L 11.0-82.0 Urine Drug SCR ED 01/15/2015 Amphetamine Ur Screen None Detected None Detect & [facility] Barbiturates Urine Screen None Detected None Detect Benzodiazepine Urine Screen None Detected None Detect Urine Cannabinoids Screen Presumptive Posi <SEE NOTE> None Detect 14 Urine Cocaine Screen None Detected None Detect Urine Opiates Screen None Detected None Detect Urine Phencyclidine Screen None Detected None Detect 15 Comp Metabolic Panel 12/31/2014 Sodium 138 mmol/L [...] Non- 83.9 >60 Egfr 107.9 >60 16 CBC Auto Diff 12/17/2014 White Blood Count [...] 0-2 Nucleated Red Blood Cells % 0.1 Laboratory test finding 12/17/2014 Erythrocyte Sed Rate 8 mm/Hr 0-20 Emmanuelle (Anti-Nuclear AB) Screen Negative Negative Rheumatoid Factor <15 IU/mL <15 17 Urinalysis Profile 12/17/2014 Urine Color Yellow Urine Appearance Clear Urine Specific [place] 1.014 1.010-1.030 Urine pH 5.0 5-9 Urine [...] TSH (Thyroid Stimulating 1.04 IU/mL 0.34-5.60 Horm) 1 Serum levels of PSA measured using the Basic-Fit DXI Hybritech immunoassay should not be interpreted [...] dialysis) 9 SEE RESULT BELOW Name: MEHUL LUTZ : [address]: Alex Metzger MD Acct: [id number] Unit: [id number] AGE: 59 Location: LAB Re03/19/15 SEX: M Status: REG REF SPEC: [id number] LAZARA: 03/19/15 [facility] DR: Alex Metzger MD REQ: [id number] RECD: 03/19/15 STATUS: COMP _ SOURCE: URINE SPDESC: ORDERED: Urine Culture Procedure Result Verified Site Urine Culture Final 03/21/15- 09 ML No Growth Day 2 (<1,000 CFU/mL) * ML - MAIN LAB ([facility]) . END OF REPORT * ML=Testing performed at Main Lab DEPARTMENT OF PATHOLOGY, [facility] [address] [place], [place] [address] Bhanu Garcia M.D. Director MARGARET # [id number] 10 RUN DATE: 01/17/15 [facility] LAB LIVE PAGE 1 RUN TIME: 14 [facility] [address] [place], [place] [address] Specimen Inquiry Name: MEHUL LUTZ : [address]: Malcom Vargas MD Acct: [id number] Unit: [id number] AGE: 59 Location: ED Re01/15/15 SEX: M Status: DEP ER SPEC: [id number] LAZARA: 01/15/15-[address]: Malcom Vargas MD REQ: [id number] RECD: 01/15/15 STATUS: TRESA JOYNER DR: Alex Metzger MD _ SOURCE: URINE SPDESC: ORDERED: Urine Culture Procedure Result Verified Site Urine Culture Final 01/17/15- 0845 ML Organism 1 ESCHERICHIA COLI [place] Count 1-10,000 (Few) CFU/ML 1. ESCHERICHIA COLI [...] antibiotic reporting. * ML - MAIN LAB ([facility]) . END OF REPORT * ML=Testing performed at Main Lab DEPARTMENT OF PATHOLOGY, [address] [place] [address] Bhanu Garcia M.D. Director [facility] # [id number] 11 RUN DATE: 01/15/15 [facility] LAB LIVE PAGE 1 RUN TIME: [address] [place] [address] Specimen Inquiry Name: MEHUL LUTZ : [address]: Malcom Vargas MD Acct: [id number] Unit: [id number] AGE: 59 Location: ED Re01/15/15 SEX: M Status: REG ER SPEC: [id number] LAZARA: 01/15/15-1245 [facility] DR: Malcom Vargas MD REQ: [id number] RECD: 01/15/15-1320 STATUS: TRESA JOYNER DR: Alex Metzger MD _ SOURCE: STOOL SPDESC: ORDERED: Hemoccult Procedure Result Verified Site Stool Occult Blood Final 01/15/15- 1342 ML Stool Occult Blood Negative * ML - MAIN LAB ([facility]) . END OF REPORT * ML=Testing performed at Main Lab DEPARTMENT OF PATHOLOGY, [address] [place] [address] Bhanu Garcia M.D. Director [facility] # [id number] 12 Because ethnic data is not always readily [...] 15-29 5 Kidney failure <15 (or dialysis) 13 Reference Range and Interpretation: TnI (ng/mL) Interpretation Less Than 0.03 ng/mL Not supportive of diagnosis of TN 0.03 - 0.50 ng/mL Indeterminate: suggest serial studies if clinically indicated. Greater than 0.5 ng/mL Consistent with diagnosis of TN 14 Presumptive Positive 15 The urine specimen was tested at the listed cutoffs: Drug class test level (ng/mL) Amphetamines 500 Barbituates 200 Benzodiazepine metabolites 200 Cocaine metabolites 150 Cannabinoids 50 Opiates 300 Pcp 25 This is a screening procedure. Positive results are not confirmed. Specimen was received without chain of custody. Results should be used for medical purposes only. 16 Because ethnic data is not always [...] <15 (or dialysis) 17 Test Performed by: [address] [address] Paving Bed Maker: Severino Thurman II, M.D., Ph.D. Procedures Date CPT Code Description Status 10/04/2017 19410 EKG Tracing & Interpretation Completed 08/03/2017 49603 Inject/Drain Joint/Bursa Major Completed 05/12/2015 80904 Pulmonary Function><Bronchodil Completed Encounters Type Date Location Provider CPT E/M Dx Office Visit 10/10/2017 [facility] [address] M47.26 3:30p Of Gay Cason MD M54.5 M43.16 F17.210 Office Visit 09/28/2017 9:00a [facility] Internal [facility], [address] Z00.00 Medicine - [address] M.DWilmer M51.16 R07.9 M75.42 F33.9 J44.9 F17.210 Z12.5 Z23 Z13.220 Office Visit 09/18/2017 2:30p [facility] [address] M54.5 Of Gay Cason MD Office Visit 09/13/2017 11:30a [place] [address] M75.42 Of [facility] M19.012 M54.5 Office Visit 2017 9:40a [facility] Internal Medicine BEBA Ryan [address] M75.42 - [address] M19.011 M19.012 F43.23 M25.511 Office Visit 08/03/2017 9:45a [facility] [place] [address] S46.012D [facility] M75.42 M19.012 Office Visit 08/01/2017 8:40a [facility] Internal Medicine BEBA Ryan [address] M25.519 - [address] F43.23 M25.511 M25.512 Office Visit 11/23/2016 3:40p [facility] Internal Medicine - [place], [employer] UP OPERATOR [address] M70.872 Office Visit 07/21/2016 3:00p [facility] Internal Medicine - [place], [employer] SET UP OPERATOR [address] Office Visit 04/24/2016 10:40a [facility] Internal Medicine - [place] Barro[place], [employer] SET UP OPERATOR [address] F33.9 Office Visit 01/10/2016 11:20a [facility] Internal Medicine - [place], [employer] UP OPERATOR [address] Office Visit 06/25/2015 1:40p [facility] Of Jose Juan Tang, [address] 721.0 Gay Segal 721.3 Office Visit 06/08/2015 8:40a [facility] Internal Medicine Alex Metzger M.D. [address] [address]38[address] - [address] 723.1 724.5 719.41 305.1 733.90 724.2 Office Visit 04/22/2015 9:00a [facility] Internal Medicine - [place], [employer] UP OPERATOR [address] 706.2 724.5 786.2 786.50 733.90 Office Visit 04/12/2015 4:00p [facility] Medicine Alex Metzger M.D. 5[address] 738.3 - [address] 733.90 Office Visit 03/02/2015 8:40a [facility] Internal Medicine María Metzger M.D. [address] 530.81 287.5 599.70 724.5 723.1 305.1 721.0 721.3 Office Visit 01/20/2015 8:40a [facility] Internal Medicine Alex Metzger M.D. 65706 787.91 - [address] 787.01 724.5 791.9 Office Visit 12/31/2014 9:00a [facility] Internal Medicine María Metzger M.D. [address] 530.81 287.5 599.70 311 300.00 305.1 722.4 722.51 V03.82 Office Visit 12/17/2014 9:20a [facility] Internal Medicine - Alex Metzger M.D. [address] 530.81 724.5 723.1 719.45 311 300.00 305.20 305.1 724.2 Office Visit 11/25/2014 1:15p [facility] Erica Isidro M.D. 65189 715.16 [facility] 844.9 Plan of Care Future Appointment(s):10/18/2017 9:00 am - Michelet Laws M.D. at [facility]11/23/2017 10:00 am - Michael Wang M.D. at [facility] Internal Medicine - [address]/15/2017 8:00 am - Faith Paul MD at [facility]10/10/2017 - Marla Cason, MDM47.26 Other spondylosis with radiculopathy, lumbar regionNew Xrays:Spine Entire Ap/LatFollow up:one week postop. Please confirm with me that scoliosis XR are reviewed prior to scheduling tkxsdkbM32.5 Low back painM43.16 Spondylolisthesis, lumbar eljnxtC82.210 Nicotine dependence, cigarettes, uncomplicated
[2017-11-01] MEDS ORDERED: ceFAZolin 2 GM PREMIX (*) 2 GM/50 ML BAG IVPB ONE (06:48)
[2017-11-01] MEDS ORDERED: Buffered Lidocaine 0.9% SYRIN* 5 ML/SYR SYRINGE ONE (06:48)
[2017-11-01] MEDS ORDERED: Bacitracin IV* 50,000 UNITS INJ ONE (06:59)
[2017-11-01] MEDS ORDERED: Lidocaine 1% MPF wEPI 200,000* 30 ML SDV ONE (06:59)
[2017-11-01] MEDS ORDERED: Thrombin 5,000 UNITS* 1 APPLIC KIT - topical use - TOPICAL ONE (06:59)
[2017-11-01] MEDS ORDERED: fentaNYL* 50 MCG/ML 2 ML VIAL (100 MCG VIAL) ONE ×5 (07:24→13:09)
[2017-11-01] MEDS ORDERED: Midazolam* 1 MG/ML 2 ML VIAL (2 MG) ONE ×2 (07:25→08:01)
[2017-11-01] MEDS ORDERED: Cisatracurium* 2 MG/ML MDV 5 ML ONE ×2 (08:09→09:39)
[2017-11-01] MEDS ORDERED: Esmolol* 10 MG/ML 10 ML (100 mg) ONE (09:18)
[2017-11-01] MEDS ORDERED: Dexamethasone IV* 4 MG/ML 1 ML (4 MG) ONE (09:39)
[2017-11-01] MEDS ORDERED: Propofol* 10 MG/ML 20 ML BTL IV PUSH ONE (09:39)
[2017-11-01] MEDS ORDERED: EPHEDrine (Pressors)* 50 MG/ML VIAL ONE (09:39)
[2017-11-01] MEDS ORDERED: Lidocaine 2% PF * 5 ML VIAL ONE (09:39)
[2017-11-01] MEDS ORDERED: Famotidine IV* 10 MG/ML 2 ML (20 mg) ONE (09:39)
[2017-11-01] MEDS ORDERED: Ondansetron INJ* 2 MG/ML VIAL ONE (09:39)
[2017-11-01] MEDS ORDERED: Levalbuterol 0.63MG/3ML NEB* UNIT OF USE INH PRN (10:28)
[2017-11-01] MEDS ORDERED: Acetaminophen TAB* 325 MG PO PRN ×2 (10:28→12:24)
[2017-11-01] MEDS ORDERED: HYDROcodone/ACETAMIN 5-325 MG* 1 TAB PO PRN (10:28)
[2017-11-01] MEDS ORDERED: DiMENhydriNATE IV* 50 MG/ML VIAL IV PUSH PRN (10:28)
[2017-11-01] MEDS ORDERED: Naloxone* 0.4 MG/ML 1 ML VIAL IV PRN (10:28)
[2017-11-01] MEDS ORDERED: Ondansetron INJ* 2 MG/ML VIAL IV PRN ×2 (10:28→12:24)
[2017-11-01] MEDS ORDERED: PROCHLORPERAZINE INJ 5 MG/ML 2 ML VIAL IV PRN (10:28)
[2017-11-01] MEDS ORDERED: ceFAZolin 1 GM VIAL(*) ONE (12:20)
[2017-11-01] MEDS ORDERED: Magnesium Hydroxide LIQ* 30 ML UDC PO PRN (12:24)
[2017-11-01] MEDS ORDERED: Mouth Piece, Nicotine* 1 EACH CARTRIDGE INH PRN ×2 (12:27)
[2017-11-01] MEDS ORDERED: Nicotine Inhaler* 10 MG AMP INH PRN (12:27)
[2017-11-01] MEDS: fentaNYL* 50 MCG/ML 2 ML VIAL (100 MCG VIAL) IV PRN ×5 (12:54→13:15)
[2017-11-01] MEDS ORDERED: Morphine INJ* 2 MG/ML 1 ML SYRINGE (TWO MG - NEW SYRINGE VERSION) IV PRN (12:54)
[2017-11-01] MEDS ORDERED: HYDROmorphone INJ* 2 MG/ML CARPUJECT SYRINGE ONE (13:34)
[2017-11-01] MEDS ORDERED: HYDROmorphone INJ* 1 MG/ML CARPUJECT SYRINGE IV PRN (13:36)
[2017-11-01] MEDS ORDERED: HYDROcodone/ACETAMIN 5-325 MG* 1 TAB ONE (13:56)
--- NOTE | 2017-11-01 13:57 | RAD ---
INDICATION: Left L4-L5 laminectomy and fusion COMPARISONS: MRI dated September 26, 2017 TECHNIQUE: Planar and coned beam fluoroscopy was provided for a surgical procedure. Total fluoroscopy time is: 33.3 seconds. The 3-D CTDI is 17.17 mGy FINDINGS: Spot images demonstrate multiple screws and rods at L4-L5 counting from L5 as the last lumbar intervertebral body. IMPRESSION: FLUOROSCOPY WAS PROVIDED FOR A SURGICAL PROCEDURE CPT II Codes: 6045F
[2017-11-01] MEDS: HYDROcodone/ACETAMIN 5-325 MG* 1 TAB PO PRN ×3 (14:00→21:57)
[2017-11-01] MEDS ORDERED: Mouth Piece, Nicotine* 1 EACH CARTRIDGE ONE (15:36)
[2017-11-01] MEDS ORDERED: Nicotine PATCH 21 MG/24 HR* PATCH ONE (15:37)
[2017-11-01] MEDS ORDERED: Nicotine Inhaler* 10 MG AMP ONE (15:37)
[2017-11-01] MEDS: Nicotine PATCH 21 MG/24 HR* PATCH TRANSDERM SCH (15:47)
[2017-11-01] MEDS: Morphine INJ* 2 MG/ML 1 ML SYRINGE (TWO MG - NEW SYRINGE VERSION) IV PRN (17:53)
[2017-11-02] MEDS: Morphine INJ* 2 MG/ML 1 ML SYRINGE (TWO MG - NEW SYRINGE VERSION) IV PRN ×3 (00:37→09:17)
[2017-11-02] MEDS: HYDROcodone/ACETAMIN 5-325 MG* 1 TAB PO PRN ×3 (03:34→12:06)
[2017-11-02] MEDS ORDERED: Nicotine Patch Removal NOTE FOLLOW UP SCH (06:00)
[2017-11-02] MEDS ORDERED: Omeprazole CAP* 20 MG PO SCH (07:30)
[2017-11-02] MEDS: Nicotine PATCH 21 MG/24 HR* PATCH TRANSDERM SCH (07:40)
--- NOTE | 2017-11-02 08:23 | RAD ---
HISTORY: Postop, spondylolisthesis COMPARISONS: October 19, 2012, MRI dated September 26, 2017 VIEWS: 2 , frontal and lateral weightbearing views of the lumbar spine FINDINGS: ALIGNMENT: There is a scoliotic curvature of the spine. VERTEBRAL BODIES: The patient is status post spinal fusion with pedicle screws at L4 and L5. There is no hardware failure or osteolysis. JOINTS: There is facet hypertrophic change along the lower lumbar spine. INTERVERTEBRAL DISCS: Intervertebral graft material is noted at L4-L5. SOFT TISSUE: Unremarkable. OTHER: The pelvis is unremarkable. The lung bases are clear. IMPRESSION: SCOLIOSIS. STATUS POST SPINAL FUSION AT L4-L5
--- NOTE | 2017-11-02 10:59 | PN ---
Progress Note - Progress Note Date of Service: 11/02/17 SOAP: Subjective: [] No events ON. Tolerates PO well. Voids. Ambulates without assistance. Wants to go home. Objective: []VSS Afebrile Wounds soft, clean dry. AAOx3 SHIELA, CN II-XII grossly intact. Motor 5/5, can stand on heels and toes without difficulty Sensory grossly intact to light touch. Assessment: [] 62 y o m POD#1 Left L4-5 MIS TLIF Plan: []Encourage ambulation. PT/OT XR: good placement of hardware. DC planning Parker Cason MD
[2017-11-02] MEDS ORDERED: Sertraline* 25 MG TAB PO SCH (12:00)
[2017-11-02 12:31] VITALS: BP 113/68
--- NOTE | 2017-11-02 22:29 | OP ---
OPERATIVE REPORT: DATE OF OPERATION: 11/01/17 DATE OF : 53 SURGEON: Marla Cason MD NETWORKING ENGINEER: LEISA Montiel ANESTHESIA: General. PRE-OP DIAGNOSIS: Degenerative disease, L4-5. POST-OP DIAGNOSIS: Degenerative disease, L4-5. OPERATIVE PROCEDURE: The patient underwent left L4-5 MIS TLIF with decompressive L4 laminectomy and L4 and L5 pedicle screws placement with PEEK interbody cage, autologous iliac crest bone graft, local bone graft and DBX with intraoperative navigation. ESTIMATED BLOOD LOSS: 50 cc. COMPLICATIONS: None. SUMMARY: The patient is a very pleasant 62-year-old gentleman with complaints of back pain radiating to both lower extremities. The patient had MRI findings consistent with multilevel degenerative disk disease with a more profound stenosis at the L4-5 level. After failing conservative treatment modalities, he was offered the option of surgical intervention in the form of left L4-5 TLIF. After all expectations, limitations, possible complications of the procedure had been explained in details with the patient with complications included but not limited to bleeding, infection, risk of injury to adjacent structures, coma, paralysis, , need for additional procedures, anesthesia risk, stroke, blindness, cancer, instability, hardware failure, pseudoarthrosis , adjacent level disease, need for additional procedures, prolonged ICU stay, proximal junctional kyphosis, the patient was agreeable to proceeding with surgery and informed consent was obtained. The patient understood that his condition may not improve and in fact may get worse after the surgery and that he may need to have additional procedure in the future. The patient reported that he was able to stop smoking and he understands the importance of smoking cessation and the role of smoking in pseudoarthrosis and other surgical complications. He understood also that the operative plan may be modified according to intraoperative findings and conditions and that he may require additional procedures in the future. DESCRIPTION OF PROCEDURE: The patient was brought to the operating room and was placed under general anesthesia by the anesthesia team. He was carefully positioned prone on the Jaden table and all bony prominences were meticulously padded. His skin was prepped and draped in a sterile fashion. After appropriate surgical pause and patient identification, a small incision over the right iliac crest was performed with #10 surgical blade. After infiltrating the skin with local anesthetic, a Corex trocar was then inserted and iliac bone graft was harvested and was kept to be used later in the fusion part of the case. Also, the percutaneous pin for the navigation star was introduced and secured in place. Intraoperative O-arm imaging was performed and the patient's data was transferred to the navigation platform. With the assistance of navigation, a small 22-mm incision was marked on the skin towards the left of the midline and the skin was infiltrated with local anesthetic. A # 10 surgical blade was used to incise the skin as well as the dorsal fascia, and over a series of dilators, the METRx tubular retractor was introduced. A microscope was then brought into the field and after exposing the left lamina of L4 and L4-5 facet, a high speed drill and Kerrison punches were used to perform an L4 laminectomy extending towards the right side as well as a medial facetectomy, in order to provide decompression at the L4-5 stenotic level. Locally harvested bone graft was kept to be used later in the fusion part of the case. Ligamentum flavum was reflected and removed with use of Kerrison punches. The ipsilateral and contralateral border of the thecal sac as well as the left L5 nerve root were readily identified and were gently retracted medially with use of nerve root retractor. A standard diskectomy was then performed. After incising the annulus fibrosus with 15 surgical blade, diskectomy was carried out with pituitary rongeurs and then a series of dilators and scrapers were used to prepare the disc space for the fusion part. After using trials of interbody spacers, a Capstone PTC cage 13 mm height x 26 mm length was inserted after being filled with iliac crest bone graft, locally harvested bone graft and the DBX putty while prior to insertion of the cage, the prepared disk space was packed with the rest of the autologous and DBX bone graft. A second intraoperative OR imaging was then obtained and confirmed excellent placement of the cage. With use of the navigation system, another incision was marked on the right side of the patient and the skin was infiltrated with local anesthetic, a #10 surgical blade was used to incise the skin and a [employer] high torque drill was used with navigated drill guide to cannulate the pedicles of L4 and L5 bilaterally and 6.5 x 45 mm Medtronic Voyager screws were placed over guidewire with assistance of navigated Powerease system. An O-arm image was also obtained and confirmed excellent placement of all hardware. Two 35 mm cobalt chrome rods were inserted through the same incisions and secured in place with screw head caps. Final fluoroscopic imaging confirmed excellent placement of all hardware. After removal of the percutaneous pin as well as the extension towers of the pedicle screws, the wounds were copiously irrigated and after confirmation of meticulous hemostasis on meticulous inspection, the wounds were closed by layers with 0 interrupted Vicryl suture to approximate the dorsal fascia, 2-0 interrupted Vicryl suture to approximate the subcutaneous tissue and 4-0 running Monocryl in the subcuticular layer to approximate the skin. The skin was covered with Dermabond and sterile dressings. At the end of the procedure, all counts were reported to be correct. The patient remained hemodynamically stable throughout the case. He was then carefully turned supine, was extubated and was transferred to Recovery in excellent condition, moving all extremities very well. The case was done with assistance of the PA because of the complexity of the case. [id number]/CPS #: [id number] KEV
--- NOTE | 2017-11-06 01:29 | DS ---
DISCHARGE SUMMARY: DATE OF ADMISSION: 11/01/17 DATE OF DISCHARGE: 11/02/17 ADMISSION DIAGNOSIS: Degenerative disk disease. POSTOPERATIVE DIAGNOSIS: Degenerative disk disease. PROCEDURE PERFORMED: The patient underwent left L4-5 minimally invasive TLIF with decompression of L4 laminectomy and pedicle screw fixation. HOSPITAL COURSE: The patient is a very pleasant 62-year-old gentleman with complaints of back pain radiating to both lower extremities. The patient failed conservative modalities. While MRI revealed degenerative disk disease at multiple levels, worst with L4-5 with lumbar stenosis. He was offered the option of surgical intervention in the form of left L4-5 minimally invasive TLIF. The patient underwent the above procedure and tolerated the procedure well, was extubated, was transported to the floor. The patient continued to improve. He was able to ambulate, tolerating p.o. well with very good pain control and was able to void. He remained neurovascularly intact and on postop day 1, he was felt to be ready to be discharged home. DISPOSITION: Home. The patient will be discharged home with a prescription for p.o. pain medications and appropriate discharge instruction. [id number]/[facility] #: [id number] MTDD
== END 2017-11-02 12:56 | disposition home or self-care (01) | DRG 304 ==
LOC: AA 11-01 06:03 → SSU 11-01 15:32
PROVIDERS: ADMIT Neurological Surgery; ATTEND Neurological Surgery
PROC: 0QB20ZZ Excision of Right Pelvic Bone, Open Approach (ICD-10-PCS; 2017-11-01)
PROC: 0SB20ZZ Excision of Lumbar Vertebral Disc, Open Approach (ICD-10-PCS; 2017-11-01)
PROC: 8E0WXBZ Computer Assisted Procedure of Trunk Region (ICD-10-PCS; 2017-11-01)
PROC: 0SG00AJ Fusion of Lumbar Vertebral Joint with Interbody Fusion Device, Posterior Approach, Anterior Column, Open Approach (ICD-10-PCS; principal; 2017-11-01 07:45)
DX: M51.36 Other intervertebral disc degeneration, lumbar region (principal); M41.9 Scoliosis, unspecified; F41.9 Anxiety disorder, unspecified; F32.9 Major depressive disorder, single episode, unspecified; K21.9 Gastro-esophageal reflux disease without esophagitis; R05 Cough; J44.9 Chronic obstructive pulmonary disease, unspecified; F17.210 Nicotine dependence, cigarettes, uncomplicated; M47.26 Other spondylosis with radiculopathy, lumbar region; Z82.49 Family history of ischemic heart disease and other diseases of the circulatory system; E78.00 Pure hypercholesterolemia, unspecified; M43.16 Spondylolisthesis, lumbar region; G89.29 Other chronic pain
CPT/HCPCS: 72100; 76000; 76001; A9270-GY; J0690; J1100; J1170; J2001; J2250; J2270; J2405; J2704; J3010

== ENCOUNTER 2019-04-13 06:43 | Emergency (ER) | payer OTHER ==
[2019-04-13] MEDS ORDERED: traMADol TAB* 50 MG PO ONE (06:54)
--- OUTSIDE RECORDS SUMMARY | 2019-04-13 08:03 | XMS REPORT | Continuity of Care Document ---
:1955 External Reference #:[id number] Author Name Monomalia Lena Care Team Providers Name Role Phone Taylor Marx MD Primary Care Physician Unavailable Payers Date Identification Numbers Payment Provider Subscriber Policy Number: [id number] Alejo Horne Group Number: [id number] [address] PayID: [id number] [place] [address] Expires: 2017 Policy Number: [id number] Alejo Horne Group Name: [id number] [address] PayID: [id number] [place] [address] Problems Active Problems Provider Date Chronic obstructive lung disease Alex Metzger M.D. Onset: 12/17/2014 Gastroesophageal reflux disease Alex Metzger M.D. Onset: 12/17/2014 Depressive disorder Alex Metzger M.D. Onset: 12/17/2014 Chronic back pain Alex Metzger M.D. Onset: 12/17/2014 Neck pain Alex Metzger M.D. Onset: 12/17/2014 Multiple joint pain Alex Metzger M.D. Onset: 12/17/2014 Cervical spondylosis without myelopathy Jose Juan Tang M.D. Onset: 2014 Lumbosacral spondylosis without myelopathy Jose Juan Tang M.D. Onset: Strain of muscle(s) and tendon(s) of the Faith Paul MD Onset: 08/03/2017 rotator cuff of left shoulder, subsequent encounter Localized, primary osteoarthritis of the Faith Paul MD Onset: 09/13/2017 shoulder region Low back pain Faith Paul MD Onset: 09/13/2017 Lumbar spondylolisthesis Marla Cason MD Onset: 10/10/2017 Tobacco user Marla Cason MD Onset: 10/10/2017 Resolved Problems Anxiety Alex Metzger M.D. Onset: 12/17/2014 Resolved: 04/07/2019 Disorder of shoulder Faith Paul MD Onset: 09/13/2017 Resolved: 04/07/2019 Thoracic and lumbosacral neuritis Michael Wang M.D. Onset: 09/28/2017 Resolved: 04/07/2019 Chest pain Michael Wang M.D. Onset: 09/28/2017 Resolved: 04/07/2019 Recurrent major depressive episodes Michael Wang M.D. Onset: 09/28/2017 Resolved: 04/07/2019 Anxiety state Doyle Ureña M.D. Onset: 10/25/2017 Resolved: 04/07/2019 Spinal stenosis of lumbar region Marla Cason MD Onset: 11/07/2017 Resolved: 04/07/2019 Convalescence after surgery Marla Cason MD Onset: 02/11/2018 Resolved: 04/07/2019 Family History Date Family Member(s) Observation Comments General Heart Disease : (age 61 Father due to Heart Years) attack : (age 89 Mother due to Old age? Years) Onset: (10/18/2017) Siblings 5 3 brothers, 2 sisters no premature cad. 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 smoker, smokes every day Recreational Drug Use Current Drug User Smoking Status Reviewed: 04/07/19 Patient is a current 1/2 PPD x 30 years. smoker, smokes every day Exercise Type/Frequency Streching back Allergies, Adverse Reactions, Alerts Description No Known Drug Allergies Medications Active Medications SIG Qnty Indications Ordering Provider Date Naproxen 1 tablet by 60tabs M54.9 Michael Wang, 12/17/2014 500mg Tablets mouth twice a M.D. day with foods as needed pain M54.5 Omeprazole take one capsule 30caps K21.9 Michael Wang, 12/17/2014 20mg Capsules by mouth every day [facility] as needed empty stomach Ibuprofen 200 400-600mg every 6 Unknown 200mg hours as needed Tablets for pain. History Medications Hydrocodone-Acetaminophen 1 tab PO q 30tabs Vassilios 11/14/2017 - 5-325mg 6-8 h prn MD Kamla 12/07/2017 Tablets pain Tramadol HCL 1 tab evening 30tabs M51.16 Michael 09/28/2017 - 50mg Tablets and hs prn Philipp Wang 12/07/2017 Sertraline HCL 2 tab daily 60tabs F43.23 Corinne Ortiz, 08/01/2017 - 25mg Tablets [facility] 12/07/2017 Diclofenac Sodium apply 4 grams 100gm M25.519 Corinne Ortiz, 08/01/2017 - 1% Gel on shoulders [employer]GER 12/07/2017 twice daily Tylenol 2 tablets 120tabs M54.5 Weston Barroso, 07/21/2016 - 325mg Tablets every 4 hours [employer] 04/07/2019 as needed pain Meclizine HCL 1 tablet 30tabs H81.10 Weston Barroso, 04/24/2016 - 25mg Tablets every 6 hours [employer]EARCH FELLOW 11/23/2016 as needed Sertraline HCL Not taking 1 60tabs F33.9 Weston Barroso, 04/24/2016 - 25mg Tablets by mouth [employer] RESEARCH FELLOW 11/23/2016 every day x 1 week then 2 tab daily Cetirizine HCL 1 tablet by 30units 786.2 Weston Barroso, 04/22/2015 - 10mg Chewtabs mouth daily POSTDOCTORAL RESEARCH FELLOW 01/10/2016 in the morning Cheratussin ac 1-2 teaspoon 240ml 786.2 Weston Barroso, 04/22/2015 - 100-10mg/5ML Syrup by mouth [employer]CTORAL RESEARCH FELLOW 05/06/2015 every 4 to 6 hours as needed cough Tramadol HCL 1 by mouth 30tabs 724.5 Alex Metzger, 12/31/2014 - 50mg Tablets twice a day, M.DWilmer 01/20/2015 as needed Spiriva Handihaler 1 puff by 60caps 496 Alex Metzger, 12/17/2014 - 18mcg Capsules mouth daily M.D. 01/10/2016 Proair HFA 2 puffs by 1units 496 Alex Metzger, 12/17/2014 - 108(90Base) mcg/Act Aerosol mouth every 4 M.D. 01/10/2016 hours as needed Cyclobenzaprine HCL one by mouth 45tabs 724.5 Alex Metzger, 12/17/2014 - 10mg Tablets three times a M.D. 04/24/2016 day as needed spasm 2 500mg 1 tablet with 60tabs Erica Dwaine, 2014 - Tablets food by mouth M.D. 12/16/2014 twice a day Naproxen 1 tablet with 60tabs Erica Dwaine, 11/25/2014 - 500mg Tablets food by mouth M.D. 12/31/2014 twice a day Naproxen 1 by mouth 60tabs Erica Dwaine, 11/25/2014 - 500mg Tablets twice a day M.D. 12/31/2014 as needed Oxycodone HCL Unknown - 12/16/2014 Naproxen 1 tablet with Unknown - 500mg Tablets food by mouth 11/25/2014 twice a day Ibuprofen as needed M54.5 Unknown - 200mg Capsules 07/21/2016 Ibuprofen by mouth Unknown - 500mg Tablets every 4 to 6 08/08/2018 hours as needed Medications Administered in Office Medication SIG Qnty Indications Ordering Provider Date Technetium TC 99M Andreas Cano M.D., 10/23/2017 Tetrofosmin, Per Unit Dose Up FACC, FASNC To 40 Millicuries Injection Triamcinolone (Kenalog) Faith Paul MD 08/03/2017 Injection Immunizations CPT Code Status Date Vaccine Lot # [id number] Given 08/08/2018 Influenza Virus Vaccine, Quadrivalent, Split, [id number] Preservative Free [id number] Given 09/28/2017 Influenza Virus Vaccine, Quadrivalent, Split, [id number] Preservative Free 31116 Given 12/31/2014 Pneumonia Vaccine [id number] Vital Signs Date Vital Result Comment 04/07/2019 7:31am Height 72 inches 6'0" Weight 154.00 lb Heart Rate 74 /min BP Systolic Sitting 134 mmHg BP Diastolic Sitting 88 mmHg O2 % BldC Oximetry 99 % BMI (Body Mass Index) 20.9 kg/m2 08/08/2018 8:28am Height 72 inches 6'0" Weight 163.25 lb Heart Rate 60 /min BP Systolic 98 mmHg BP Diastolic 64 mmHg Body Temperature 98.5 F O2 % BldC Oximetry 93 % BMI (Body Mass Index) 22.1 kg/m2 07/24/2018 10:35am Height 72 inches 6'0" BP Systolic Sitting 130 mmHg BP Diastolic Sitting 80 mmHg Pain Level 4 04/15/2018 3:09pm Height 72 inches 6'0" Weight 168.00 lb BP Systolic Sitting 130 mmHg BP Diastolic Sitting 90 mmHg Pain Level 10 BMI (Body Mass Index) 22.8 kg/m2 02/11/2018 12:55pm Height 72 inches 6'0" Weight 168.00 lb BP Systolic Sitting 132 mmHg BP Diastolic Sitting 80 mmHg Pain Level 7 BMI (Body Mass Index) 22.8 kg/m2 12/11/2017 3:16pm Height 72 inches 6'0" Weight 168.00 lb Heart Rate 82 /min BP Systolic Sitting 112 mmHg BP Diastolic Sitting 80 mmHg Pain Level 6 BMI (Body Mass Index) 22.8 kg/m2 12/07/2017 9:26am Weight 168.00 lb W/Boots Heart Rate 82 /min BP Systolic Sitting 100 mmHg BP Diastolic Sitting 68 mmHg Body Temperature 96.0 F O2 % BldC Oximetry 97 % 11/15/2017 7:57am Height 72 inches 6'0" Weight 171.00 lb BP Systolic 116 mmHg BP Diastolic 68 mmHg Respiratory Rate 18 /min Pain Level 0 BMI (Body Mass Index) 23.2 kg/m2 11/07/2017 2:12pm Height 72 inches 6'0" Weight 169.00 lb Heart Rate 77 /min BP Systolic Sitting 124 mmHg BP Diastolic Sitting 67 mmHg Pain Level 6 BMI (Body Mass Index) 22.9 kg/m2 10/25/2017 10:42am Height 72 inches 6'0" Weight 169.00 lb Heart Rate 67 /min BP Systolic Sitting 114 mmHg BP Diastolic Sitting 72 mmHg Body Temperature 96.3 F O2 % BldC Oximetry 94 % BMI (Body Mass Index) 22.9 kg/m2 10/18/2017 8:37am Height 72 inches 6'0" Weight 167.00 lb Heart Rate 72 /min BP Systolic Sitting 118 mmHg LA, reg BP Diastolic Sitting 78 mmHg LA, reg BMI (Body Mass Index) 22.6 kg/m2 10/10/2017 3:00pm Height 72 inches 6'0" Weight 168.00 lb Heart Rate 72 /min BP Systolic Sitting 130 mmHg BP Diastolic Sitting 82 mmHg Pain Level 2 BMI (Body Mass Index) 22.8 kg/m2 09/28/2017 9:00am Heart Rate 66 /min BP Systolic Sitting 126 mmHg BP Diastolic Sitting 82 mmHg Body Temperature 96.9 F O2 % BldC Oximetry 95 % 09/28/2017 8:51am Weight 168.50 lb 09/18/2017 1:38pm Height 72 inches 6'0" Weight 170.00 lb Heart Rate 91 /min BP Systolic Sitting 128 mmHg BP Diastolic Sitting 78 mmHg Pain Level 6 BMI (Body Mass Index) 23.1 kg/m2 09/13/2017 11:49am Height 72 inches 6'0" Weight 171.00 lb per pt Heart Rate 66 /min reg BP Systolic Sitting 112 mmHg Rue, reg cuff BP Diastolic Sitting 76 mmHg Rue, reg cuff Respiratory Rate 16 /min Body Temperature 97.3 F tympanic Pain Level 7 ledft shoulder BMI (Body Mass Index) 23.2 kg/m2 2017 9:21am Height 72 inches 6'0" Weight 172.00 lb Heart Rate 68 /min BP Systolic Sitting 98 mmHg LA reg cuff BP Diastolic Sitting 66 mmHg LA reg cuff Body Temperature 98.2 F O2 % BldC Oximetry 95 % BMI (Body Mass Index) 23.3 kg/m2 08/03/2017 10:33am Height 72 inches 6'0" Weight 176.00 lb BP Systolic 130 mmHg BP Diastolic 82 mmHg Respiratory Rate 20 /min Pain Level 8 BMI (Body Mass Index) 23.9 kg/m2 08/01/2017 8:19am Weight 176.00 lb Heart Rate 69 /min BP Systolic Sitting 120 mmHg BP Diastolic Sitting 80 mmHg Body Temperature 97.5 F O2 % BldC Oximetry 98 % 11/23/2016 3:45pm Height 72 inches 6'0" Weight 171.50 lb Heart Rate 84 /min BP Systolic Sitting 106 mmHg BP Diastolic Sitting 78 mmHg Body Temperature 97.5 F O2 % BldC Oximetry 98 % BMI (Body Mass Index) 23.3 kg/m2 07/21/2016 3:01pm Height 72 inches 6'0" Weight 178.38 lb Heart Rate 74 /min BP Systolic Sitting 108 mmHg BP Diastolic Sitting 90 mmHg Body Temperature 98.3 F O2 % BldC Oximetry 98 % BMI (Body Mass Index) 24.2 kg/m2 04/24/2016 10:44am Height 72 inches 6'0" Weight 184.00 lb Heart Rate 86 /min BP Systolic Sitting 130 mmHg BP Diastolic Sitting 80 mmHg BP Systolic Standing 112 mmHg BP Diastolic Standing 78 mmHg BP Systolic Lying Down 110 mmHg BP Diastolic Lying Down 82 mmHg O2 % BldC Oximetry 98 % BMI (Body Mass Index) 25.0 kg/m2 01/10/2016 11:32am Height 72 inches 6'0" Weight 188.00 lb Heart Rate 82 /min BP Systolic Sitting 106 mmHg BP Diastolic Sitting 78 mmHg Body Temperature 98.8 F O2 % BldC Oximetry 94 % BMI (Body Mass Index) 25.5 kg/m2 06/25/2015 1:59pm Height 72 inches 6'0" Weight 173.00 lb Heart Rate 82 /min BP Systolic Sitting 136 mmHg BP Diastolic Sitting 80 mmHg Pain Level 5 back BMI (Body Mass Index) 23.5 kg/m2 06/08/2015 8:39am Height 72 inches 6'0" Weight 174.50 lb Heart Rate 79 /min BP Systolic Sitting 138 mmHg BP Diastolic Sitting 78 mmHg Body Temperature 97.5 F O2 % BldC Oximetry 97 % BMI (Body Mass Index) 23.7 kg/m2 04/22/2015 9:03am Height 72 inches 6'0" Weight 173.25 lb Heart Rate 94 /min BP Systolic Sitting 112 mmHg BP Diastolic Sitting 80 mmHg Body Temperature 99.9 F O2 % BldC Oximetry 93 % BMI (Body Mass Index) 23.5 kg/m2 04/12/2015 4:09pm Height 72 inches 6'0" Weight 176.00 lb Heart Rate 88 /min BP Systolic Sitting 118 mmHg BP Diastolic Sitting 70 mmHg O2 % BldC Oximetry 97 % BMI (Body Mass Index) 23.9 kg/m2 03/02/2015 8:19am Height 72 inches 6'0" Weight 176.38 lb Heart Rate 80 /min BP Systolic Sitting 110 mmHg BP Diastolic Sitting 68 mmHg Body Temperature 97.3 F O2 % BldC Oximetry 95 % BMI (Body Mass Index) 23.9 kg/m2 01/20/2015 8:24am Weight 175.00 lb Heart Rate 84 /min BP Systolic Sitting 128 mmHg BP Diastolic Sitting 84 mmHg Body Temperature 97.7 F O2 % BldC Oximetry 97 % 12/31/2014 8:43am Height 72 inches 6'0" Weight 170.12 lb Heart Rate 68 /min BP Systolic Sitting 122 mmHg BP Diastolic Sitting 72 mmHg O2 % BldC Oximetry 98 % BMI (Body Mass Index) 23.1 kg/m2 12/17/2014 9:10am Height 72 inches 6'0" Weight 175.25 lb Heart Rate 60 /min BP Systolic Sitting 130 mmHg BP Diastolic Sitting 76 mmHg Body Temperature 97.1 F BMI (Body Mass Index) 23.8 kg/m2 11/25/2014 1:47pm Height 72 inches 6'0" Weight 160.00 lb Heart Rate 70 /min BP Systolic 103 mmHg BP Diastolic 67 mmHg BMI (Body Mass Index) 21.7 kg/m2 Results Test Date Facility Test Result H/L Range Note Xray 04/12/2018 [facility] Lumbar spine <pending> [address] [place] [address] Flexion/extensi [phone] on views CBC No Diff 10/19/2017 [facility] White Blood 9.6 10^3/uL N 3.5-10.[address] [place] [address] [phone] Red Blood Count 4.72 10^6/uL N 4.0-5.4 Hemoglobin 14.6 g/dL N 14.0-18.0 Hematocrit 44 % N 42-52 Mean Corpuscular Volume 93 fL N 80-94 Mean Corpuscular Hemoglobin 31 pg N 27-31 Mean Corpuscular HGB Conc 33 g/dL N 31-36 Red Cell Distribution Width 14 % N 10.5-15 Platelet Count 186 10^3/uL N 150-450 Mean Platelet Volume 10 um3 N 7.4-10.4 Inr/Protime 10/19/2017 [facility] Inr 1.03 High 0.77-1.[address] [place], [place] [id number] [phone] Laboratory test 10/19/2017 [facility] Partial 33.1 N 26.0- 36.[address] [place] [address] Time PTT [phone] Basic Metabolic 10/19/2017 [facility] Sodium 140 mmol/L N 133- 145 Panel [address] [place] [address] [phone] Potassium 3.8 mmol/L N 3.5-5.0 Chloride 105 mmol/L N 101-111 Co2 Carbon Dioxide 29 mmol/L N 22-32 Anion Gap 6 mmol/L N 2-11 Glucose 95 mg/dL N 70-100 Blood Urea Nitrogen 18 mg/dL N 6-24 Creatinine 0.99 mg/dL N 0.67-1.17 BUN/Creatinine Ratio 18.2 N 8-20 Calcium 9.4 mg/dL N 8.6-10.3 Egfr Non- 76.3 >60 Egfr 98.2 >60 1 Laboratory test 10/19/2017 [facility] TSH (Thyroid 0.66 mcIU/mL N 0.34-5.[address] Stim Horm) [place] [address] [phone] Type & Screen 10/19/2017 [facility] Patient Blood A Positive [address] [place] [address] [phone] Antibody Screen NEGATIVE Laboratory test 10/02/2017 [facility] PSA Screening 2.127 ng/mL N 0-4.000 2 finding [address] [place] [address] [phone] Lipid Profile 10/02/2017 [facility] Triglycerides 65 mg/dL 3 (Trig/Chol/HDL) [address] [place] [address] [phone] Cholesterol 192 mg/dL 4 HDL Cholesterol 48.3 mg/dL 5 LDL Cholesterol 131 mg/dL 6 Laboratory test 10/02/2017 [facility] TSH (Thyroid 2.06 mcIU/mL N 0.34-5.[address] Stim [place]orm) [place] [address] [phone] Comp Metabolic 10/02/2017 [facility] Sodium 139 mmol/L N 133- 145 Panel [address] [place] [address] [phone] Potassium 4.0 mmol/L N 3.5-5.0 Chloride 103 mmol/L N 101-111 Co2 Carbon Dioxide 30 mmol/L N 22-32 Anion Gap 6 mmol/L N 2-11 Glucose 107 mg/dL High 70-100 Blood Urea Nitrogen 18 mg/dL N 6-24 Creatinine 0.88 mg/dL N 0.67-1.17 BUN/Creatinine Ratio 20.5 High 8-20 Calcium 9.6 mg/dL N 8.6-10.3 Total Protein 7.0 g/dL N 6.4-8.9 Albumin 4.2 g/dL N 3.2-5.2 Globulin 2.8 g/dL N 2-4 Albumin/Globulin Ratio 1.5 N 1-3 Total Bilirubin 0.80 mg/dL N 0.2-1.0 Alkaline Phosphatase 53 U/L N 34-104 Alt 16 U/L N 7-52 Ast 19 U/L N 13-39 Egfr Non- 87.5 >60 Egfr 112.5 >60 8 Creatinine 04/13/2015 [facility] Creatinine 0.90 mg/dL N 0.67- 1.[address] [place] [address] [phone] Egfr Non- 86.1 N >60 Egfr 110.7 N >60 9 Laboratory test 04/13/2015 [facility] Blood Urea 15 mg/dL N 6- [address] [place] [address] [phone] Laboratory test 03/19/2015 [facility] Urine Culture And SEE RESULT [address] [place] [address] [phone] Urinalysis 01/15/2015 [facility] Urine Color Yellow N Profile [address] [place] [address] [phone] Urine Appearance Cloudy N Urine Specific [place] 1.020 N 1.010-1.030 Urine pH 5.0 N 5-9 Urine Urobilinogen Negative N Negative Urine Ketones Trace Abnormal Negative Urine Protein Negative N Negative Urine Leukocytes Negative N Negative Urine Blood 1+ Abnormal Negative Urine Nitrite Negative N Negative Urine Bilirubin Negative N Negative Urine Glucose Negative N Negative Urine White Blood Cell Trace(0-5/hpf) N Absent Urine Red Blood Cell 2+(6-10/hpf) Abnormal Absent Urine Bacteria Absent N Absent Urine Hyaline Casts Present Abnormal Absent Urine Drug 01/15/2015 [facility] Amphetamine Ur None Detected N None Detect SCR ED & [address] [place] [address] [phone] Barbiturates Urine Screen None Detected N None Detect Benzodiazepine Urine Screen None Detected N None Detect Urine Cannabinoids Screen Presumptive Posi <SEE NOTE> Abnormal None Detect 11 Urine Cocaine Screen None Detected N None Detect Urine Opiates Screen None Detected N None Detect Urine Phencyclidine Screen None Detected N None Detect 12 Urine Culture And 01/15/2015 [facility] Urine (SEE NOTE) [address] [place] [address] [phone] Stool For Blood 01/15/2015 [facility] Stool Occult (SEE NOTE) [address] [place] [address] [phone] CBC Auto Diff 01/15/2015 [facility] White Blood 19.1 High 4.8- [address] Count 10^3/uL 0.8 [place] [address] [phone] Red Blood Count 5.88 10^6/uL High 4.0-5.4 Hemoglobin 18.3 g/dL High 14.0-18.0 Hematocrit 55 % High 42-52 Mean Corpuscular Volume 94 fL N 80-94 Mean Corpuscular Hemoglobin 31 pg N 27-31 Mean Corpuscular HGB Conc 33 g/dL N 31-36 Red Cell Distribution Width 13 % N 10.5-15 Platelet Count 221 10^3/uL N 150-450 Mean Platelet Volume 9 um3 N 7.4-10.4 Abs Neutrophils 16.6 10^3/uL High 1.5-7.7 Abs Lymphocytes 1.2 10^3/uL N 1.0-4.8 Abs Monocytes 1.1 10^3/uL High 0-0.8 Abs Eosinophils 0.1 10^3/uL N 0-0.6 Abs Basophils 0.1 10^3/uL N 0-0.2 Abs Nucleated RBC 0 10^3/uL N Granulocyte % 87.0 % High 38-83 Lymphocyte % 6.5 % Low 25-47 Monocyte % 5.5 % N 1-9 Eosinophil % 0.5 % N 0-6 Basophil % 0.5 % N 0-2 Nucleated Red Blood Cells % 0 N Laboratory test 01/15/2015 [facility] Creatine Kinase 71 U/L N 10-[address] [place] [address] [phone] Troponin I 0.00 ng/mL N <0.03 15 Lactic Acid 2.0 mmol/L N 0.5-2.2 Lipase 24 U/L N 11.0-82.0 Comp Metabolic Panel 01/15/2015 [facility] Sodium 135 mmol/L N 133-145 [address] [place] [address] [phone] Potassium 4.0 mmol/L N 3.5-5.0 Chloride 99 mmol/L Low 101-111 Co2 Carbon Dioxide 27 mmol/L N 22-32 Anion Gap 9 mmol/L N 2-11 Glucose 138 mg/dL High 70-100 Blood Urea Nitrogen 21 mg/dL N 6-24 Creatinine 1.29 mg/dL High 0.67-1.17 BUN/Creatinine Ratio 16.3 N 8-20 Calcium 10.6 mg/dL High 8.6-10.3 Total Protein 8.3 g/dL N 6.4-8.9 Albumin 4.9 g/dL N 3.2-5.2 Globulin 3.4 g/dL N 2-4 Albumin/Globulin Ratio 1.4 N 1-3 Total Bilirubin 1.00 mg/dL N 0.2-1.0 Alkaline Phosphatase 71 U/L N 34-104 Alt 58 U/L High 7-52 Ast 34 U/L N 13-39 Egfr Non- 56.8 N >60 Egfr 73.1 N >60 16 Laboratory test 01/15/2015 [facility] Activated 34.3 seconds N 26.0-36.3 finding [address] [facility] [place] [address] Thrombo Time [phone] Inr/Protime 01/15/2015 [facility] Inr 0.97 N 0.78-1.07 [address] [place] [address] [phone] Comp Metabolic 12/31/2014 [facility] Sodium 138 mmol/L N 133- 145 Panel [address] [place] [address] [phone] Potassium 4.3 mmol/L N 3.5-5.0 Chloride 106 mmol/L N 101-111 Co2 Carbon Dioxide 31 mmol/L N 22-32 Anion Gap 1 mmol/L Low 2-11 Glucose 102 mg/dL High 70-100 Blood Urea Nitrogen 23 mg/dL N 6-24 Creatinine 0.92 mg/dL N 0.67-1.17 BUN/Creatinine Ratio 25.0 High 8-20 Calcium 9.4 mg/dL N 8.6-10.3 Total Protein 6.3 g/dL Low 6.4-8.9 Albumin 4.2 g/dL N 3.2-5.2 Globulin 2.1 g/dL N 2-4 Albumin/Globulin Ratio 2.0 N 1-3 Total Bilirubin 0.30 mg/dL N 0.2-1.0 Alkaline Phosphatase 47 U/L N 34-104 Alt 44 U/L N 7-52 Ast 29 U/L N 13-39 Egfr Non- 83.9 N >60 Egfr 107.9 N >60 17 CBC Auto Diff 12/17/2014 [facility] White Blood 4.8 10^3/uL N 4.8-10.[address] [place] [address] [phone] Red Blood Count 4.70 10^6/uL N 4.0-5.4 Hemoglobin 14.9 g/dL N 14.0-18.0 Hematocrit 45 % N 42-52 Mean Corpuscular Volume 95 fL High 80-94 Mean Corpuscular Hemoglobin 32 pg High 27-31 Mean Corpuscular HGB Conc 33 g/dL N 31-36 Red Cell Distribution Width 13 % N 10.5-15 Platelet Count 147 10^3/uL Low 150-450 Mean Platelet Volume 9 um3 N 7.4-10.4 Abs Neutrophils 3.1 10^3/uL N 1.5-7.7 Abs Lymphocytes 1.1 10^3/uL N 1.0-4.8 Abs Monocytes 0.5 10^3/uL N 0-0.8 Abs Eosinophils 0.1 10^3/uL N 0-0.6 Abs Basophils 0 10^3/uL N 0-0.2 Abs Nucleated RBC 0 10^3/uL N Granulocyte % 64.7 % N 38-83 Lymphocyte % 22.5 % Low 25-47 Monocyte % 10.9 % High 1-9 Eosinophil % 1.3 % N 0-6 Basophil % 0.6 % N 0-2 Nucleated Red Blood Cells % 0.1 N Laboratory test 12/17/2014 [facility] TSH (Thyroid 1.04 IU/mL N 0.34-5.[address] [place] [address] Horm) [phone] Urinalysis 12/17/2014 [facility] Urine Color Yellow N Profile [address] [place] [address] [phone] Urine Appearance Clear N Urine Specific [place] 1.014 N 1.010-1.030 Urine pH 5.0 N 5-9 Urine Urobilinogen Negative N Negative Urine Ketones Negative N Negative Urine Protein Negative N Negative Urine Leukocytes Negative N Negative Urine Blood 1+ Abnormal Negative Urine Nitrite Negative N Negative Urine Bilirubin Negative N Negative Urine Glucose Negative N Negative Urine White Blood Cell Absent N Absent Urine Red Blood Cell 1+(3-5/hpf) Abnormal Absent Urine Bacteria Absent N Absent Laboratory test 12/17/2014 [facility] Erythrocyte Sed 8 mm/Hr N 0-[address] [place] [address] [phone] Emmanuelle (Anti-Nuclear AB) Screen Negative N Negative Rheumatoid Factor <15 IU/mL N <15 18 1 Because ethnic data is not always [...] levels of PSA measured using the [employer] DXI Hybritech immunoassay should not be interpreted [...] dialysis) 10 SEE RESULT BELOW Name: MEHUL HORNE : [address]: Alex Metzger MD Acct: [id number] Unit: [id number] AGE: 59 Location: LAB Re03/19/15 SEX: M Status: REG REF SPEC: [id number] LAZARA: 03/19/[address]: Alex Metzger MD REQ: [id number] RECD: 03/19/15 STATUS: COMP _ SOURCE: URINE SPDESC: ORDERED: Urine Culture Procedure Result Verified Site Urine Culture Final 03/21/15- 09 ML No Growth Day 2 (<1,000 CFU/mL) * ML - MAIN LAB (PSC1) . END OF REPORT * ML=Testing performed at Main Lab DEPARTMENT OF PATHOLOGY, [facility] Charge Payment [place], [place] [address] Bhanu Garcia M.D. Director [facility] # [id number] 11 Presumptive Positive 12 The urine specimen was tested at the listed cutoffs: Drug class test level (ng/mL) Amphetamines 500 Barbituates 200 Benzodiazepine metabolites 200 Cocaine metabolites 150 Cannabinoids 50 Opiates 300 Pcp 25 This is a screening procedure. Positive results are not confirmed. Specimen was received without chain of custody. Results should be used for medical purposes only. 13 RUN DATE: 01/17/15 [facility] LAB LIVE PAGE 1 RUN TIME: 845 [facility] [employer] [place], [place] [address] Specimen Inquiry Name: MEHUL HORNE : [address]: Malcom Vargas MD Acct: [id number] Unit: [id number] AGE: 59 Location: ED Re01/15/15 SEX: M Status: DEP ER SPEC: [id number] LAZARA: 01/15/15-[address] [facility] [address]: Malcom Vargas MD REQ: [id number] RECD: 01/15/15 STATUS: TRESA JOYNER DR: Alex Metzger MD _ SOURCE: URINE [facility]: ORDERED: Urine Culture Procedure Result Verified Site Urine Culture Final 01/17/15- 0845 ML Organism 1 ESCHERICHIA COLI [place] Count 1-10,000 (Few) CFU/ML 1. ESCHERICHIA COLI [...] antibiotic reporting. * ML - MAIN LAB (PSC1) . END OF REPORT * ML=Testing performed at Main Lab DEPARTMENT OF PATHOLOGY, [facility] Charge Payment [place], [place] [address] Bhanu Garcia M.D. Director [facility] # [id number] 14 RUN DATE: 01/15/15 [facility] LAB LIVE PAGE 1 RUN TIME: 134 [facility] [employer] [place], [place] [address] Specimen Inquiry Name: MEHUL HORNE : [address]: Malcom Vargas MD Acct: [id number] Unit: [id number] AGE: 59 Location: ED Re01/15/15 SEX: M Status: REG ER SPEC: [id number] LAZARA: 01/15/15-1245 [facility] DR: Malcom Vargas MD REQ: [id number] RECD: 01/15/151320 STATUS: TRESA JOYNER DR: Alex Metzger MD _ SOURCE: STOOL [facility]: ORDERED: Hemoccult Procedure Result Verified Site Stool Occult Blood Final 01/15/15- 1342 ML Stool Occult Blood Negative * ML - MAIN LAB (PSC1) . END OF REPORT * ML=Testing performed at Main Lab DEPARTMENT OF PATHOLOGY, [address] [place] [address] Bhanu Garcia M.D. Director [facility] # [id number] 15 Reference Range and Interpretation: TnI (ng/mL) Interpretation Less Than 0.03 ng/mL Not supportive of diagnosis of [place] 0.03 - 0.50 ng/mL Indeterminate: suggest serial studies if clinically indicated. Greater than 0.5 ng/mL Consistent with diagnosis of [place] 16 Because ethnic data is not always [...] 5 Kidney failure <15 (or dialysis) 17 Because ethnic data is not always [...] <15 (or dialysis) 18 Test Performed by: [place] [address] English Adjunct Faculty: Severino Thurman II, M.D., Ph.D. Procedures Date Code Description Status 11/01/2017 Allograft For Spine Surgery, Morselized Completed 11/01/2017 Allograft For Spine Surgery, Morselized Completed 11/01/2017 Autograft For Spine Surgery, Morselized Completed 11/01/201754647 Arthrodesis Posterior Interbody Technique Completed 11/01/201771096 Arthrodesis Posterior Interbody Technique Completed 11/01/2017 16755 Non-Segmental Instrumentation Posterior 1 Interspace Completed 11/01/2017 63984 Non-Segmental Instrumentation Posterior 1 Interspace Completed 11/01/2017 12987 Insertion Interbody Biomechanical Device; Each Interspace Completed 11/01/2017 43830 Insertion Interbody Biomechanical Device; Each Interspace Completed 11/01/2017 54280 Stereotactic Computer-Assisted, Spinal Completed 11/01/2017 06368 Stereotactic Computer-Assisted, Spinal Completed 11/01/2017 10314 Oneill/Facet/Foraminotomy;Vertebral Segment; Lumbar Completed 11/01/2017 68884 Oneill/Facet/Foraminotomy;Vertebral Segment; Lumbar Completed 10/24/2017 47610 ECHO Transthorasic Realtime 2D W Doppler & Color Flow Hosp Completed 10/23/2017 89922 Stress Test Completed 10/23/2017 29865 Myocardial Perfusion Imaging Tomographic (Spect) Multiple Completed Studies 10/18/2017 41332 EKG Tracing & Interpretation Completed 10/04/2017 76241 EKG Tracing & Interpretation Completed 10/02/2017 79582 Plethysmography Determination Lung Volumes & Per Airway Completed Resist 10/02/2017 56398 Pulmonary Function><Bronchodil Completed 08/03/2017 49540 Inject/Drain Joint/Bursa Major W/O US Completed 05/12/2015 73622 Pulmonary Function><Bronchodil Completed Encounters Type Date Location Provider Dx Diagnosis Office Visit 04/07/2019 [facility] Internal Taylor Marx, H69.93 Unspecified 7:30a Leth[place] - Nell Segal Eustachian tube disorder, bilateral M54.5 Low back pain F17.210 Nicotine dependence, cigarettes, uncomplicated R06.02 Shortness of breath Z13.1 Encounter for screening for diabetes mellitus Z11.4 Encounter for screening for human immunodeficiency virus Z11.59 Encounter for screening for other viral diseases Office Visit 08/08/2018 [facility] Internal Michael K21.9 Gastro-esophageal 8:40a Letha Wang M.D. reflux disease without Suite R esophagitis F17.210 Nicotine dependence, cigarettes, uncomplicated Z23 Encounter for immunization M54.5 Low back pain Z98.1 Arthrodesis status Office Visit 07/24/2018 Neurosurgery Vassilios Z48.89 Encounter for 10:30a Services Of Gay Cason MD other specified surgical aftercare Office Visit 04/15/2018 [facility] Z48.89 Encounter for 2:30p Services Of Gay Cason MD other specified surgical aftercare M51.16 Intervertebral disc disorders w radiculopathy, lumbar region Office 02/11/2018 [facility] Z48.89 Encounter for other Visit 1:00p Services Of Gay Cason MD specified surgical aftercare Office 12/07/2017 [facility] Internal Michael M51.16 Intervertebral disc Visit 10:00a Letha Wang M.D. disorders w R radiculopathy, lumbar region K21.9 Gastro-esophageal reflux disease without esophagitis F33.0 Major depressive disorder, recurrent, mild F17.210 Nicotine dependence, cigarettes, uncomplicated Office Visit 11/15/2017 Orthopedic Faith Paul M75.42 Impingement syndrome 8:00a Services Of of left shoulder C.M.A. Office Visit 10/25/2017 [facility] Doyle Garcia Z01.810 Encounter for 11:00a Internal Philipp Ureña preprocedural Medicine-Arrowwo cardiovascular od examination M47.26 Other spondylosis with radiculopathy, lumbar region K21.9 Gastro-esophageal reflux disease without esophagitis F41.9 Anxiety disorder, unspecified F17.210 Nicotine dependence, cigarettes, uncomplicated Office Visit 10/18/2017 9:00a [facility] Michelet Medina R07.9 Chest pain, Philipp Laws unspecified E78.00 Pure hypercholesterolemia, unspecified F17.210 Nicotine dependence, cigarettes, uncomplicated E78.5 Hyperlipidemia, unspecified Office 10/10/2017 [facility] V[facility]os M47.26 Other spondylosis Visit 3:30p Services Of Gay Cason MD with radiculopathy, lumbar region M54.5 Low back pain M43.16 Spondylolisthesis, lumbar region F17.210 Nicotine dependence, cigarettes, uncomplicated Office Visit 09/28/2017 9:00a [facility] Internal Michael Wang, Z00.00 Encntr for Medicine - Philipp general adult Suite R medical exam w/o abnormal findings M51.16 Intervertebral disc disorders w radiculopathy, lumbar region R07.9 Chest pain, unspecified M75.42 Impingement syndrome of left shoulder F33.9 Major depressive disorder, recurrent, unspecified J44.9 Chronic obstructive pulmonary disease, unspecified F17.210 Nicotine dependence, cigarettes, uncomplicated Z12.5 Encounter for screening for malignant neoplasm of prostate Z23 Encounter for immunization Z13.220 Encounter for screening for lipoid disorders Office Visit 09/18/2017 [facility] M54.5 Low back pain 2:30p Services Of Gay Cason MD Office Visit 09/13/2017 Orthopedic Faith Paul MD M75.42 Impingement 11:30a Services Of Sujey syndrome of left shoulder M19.012 Primary osteoarthritis, left shoulder M54.5 Low back pain Office Visit 2017 9:40a [facility] Internal Corinne Ortiz, M75.42 Impingement Medicine - STRATEGIC COMMUNICATIONS MANAGER syndrome of left Suite R shoulder M19.011 Primary osteoarthritis, right shoulder M19.012 Primary osteoarthritis, left shoulder F43.23 Adjustment disorder with mixed anxiety and depressed mood M25.511 Pain in right shoulder Office Visit 08/03/2017 9:45a Orthopedic Faith Paul, S46.012D Strain of Services Of MD peters/frederic the C.M.A. rotator cuff of left shoulder, subs M75.42 Impingement syndrome of left shoulder M19.012 Primary osteoarthritis, left shoulder Office Visit 08/01/2017 8:40a [facility] Internal Ellajulieta Ortiz, M25.519 Pain in Medicine - STRATEGIC COMMUNICATIONS MANAGER unspecified Suite R shoulder F43.23 Adjustment disorder with mixed anxiety and depressed mood M25.511 Pain in right shoulder M25.512 Pain in left shoulder Office Visit 11/23/2016 3:40p [facility] Internal Weston Barroso, M79.675 Pain in left Medicine - Suite POSTDOCTORAL RESEARCH FELLOW toe(s) R M70.872 Oth soft tissue disord related to use/pressure, left ank/ft Office Visit 07/21/2016 3:00p [facility] Internal Weston Barroso M54.5 Low back pain Medicine - POSTDOCTORAL RESEARCH FELLOW Suite R Office Visit 04/24/2016 10:40a [facility] Internal Weston Barroso, H81.10 Benign paroxysmal Medicine - POSTDOCTORAL RESEARCH FELLOW vertigo, Suite R unspecified ear F33.9 Major depressive disorder, recurrent, unspecified Office Visit 01/10/2016 11:20a [facility] Internal Weston Barroso M54.5 Low back pain Medicine - Suite R POSTDOCTORAL RESEARCH FELLOW Office Visit 06/25/2015 1:40p Neurosurgery Jose Juan Lynch 721.0 Spondylosis Services Of Gay Tang M.D. Cervical W/O Myelopathy 721.3 Spondylosis Lumbar W/O Myelopathy Office Visit 06/08/2015 8:40a [facility] Internal Alex Metzger 738.3 [facility] - Suite Philipp Rib Acquired R 723.1 Cervicalgia 724.5 Backache Unspec 719.41 Pain Joint Shoulder Region 305.1 Tobacco Use Disorder 733.90 Bone & Cartilage Disorder Unspec 724.2 Lumbago Office Visit 04/22/2015 9:00a [facility] Internal Weston Barroso, 738.3 [facility] - Suite POSTDOCTORAL RESEARCH FELLOW Rib Acquired R 706.2 Sebaceous Cyst 724.5 Backache Unspec 786.2 Cough 786.50 Pain Chest Unspec 733.90 Bone & Cartilage Disorder Unspec Office Visit 04/12/2015 4:00p [facility] Internal Alex Metzger, 738.3 [facility] - Suite M.D. Rib Acquired R 733.90 Bone & Cartilage Disorder Unspec Office Visit 03/02/2015 8:40a [facility] Internal Alex Metzger, 496 COPD Airway Medicine - Suite M.D. Obstruction Chronic R Not Class Elsewhere 530.81 Esophageal Reflux 287.5 Thrombocytopenia Unspec 599.70 Hematuria, Unspecified 724.5 Backache Unspec 723.1 Cervicalgia 305.1 Tobacco Use Disorder 721.0 Spondylosis Cervical W/O Myelopathy 721.3 Spondylosis Lumbar W/O Myelopathy Office Visit 01/20/2015 8:40a [facility] Internal Alex Metzger, 787.91 Diarrhea Medicine - Suite R M.D. 787.01 Nausea W/ Vomiting 724.5 Backache Unspec 791.9 Urine Examination Other Nonspecific Findings Office Visit 12/31/2014 9:00a [facility] Internal Alex Siddiquiino, 496 COPD Airway Medicine - Suite M.D. Obstruction Chronic R Not Class Elsewhere 530.81 Esophageal Reflux 287.5 Thrombocytopenia Unspec 599.70 Hematuria, Unspecified 311 Depressive Disorder Not Elsewhere Spec 300.00 Anxiety State Unspec 305.1 Tobacco Use Disorder 722.4 Intervertebral Disc Degeneration Cervical 722.51 Intervertebral Disc Degeneration Thoracic V03.82 Streptococcus Pneumoniae Vaccination Spec Other Office Visit 12/17/2014 9:20a [facility] Internal Alex Siddiquiino, 496 COPD Airway Medicine - Suite M.D. Obstruction Chronic R Not Class Elsewhere 530.81 Esophageal Reflux 724.5 Backache Unspec 723.1 Cervicalgia 719.45 Pain Joint Pelvic Region & Thigh 311 Depressive Disorder Not Elsewhere Spec 300.00 Anxiety State Unspec 305.20 Cannabis Abuse Unspec 305.1 Tobacco Use Disorder 724.2 Lumbago Office Visit 11/25/2014 1:15p Orthopedic Erica 715.16 Osteoarthrosis Services Of Philipp Isidro Localized Prim Lower C.M.A. Leg 844.9 Sprains & Strains Knee & Leg Unspec Plan of Treatment Future Appointment(s):05/07/2019 1:00 pm - Taylor Marx M.D. at [facility] Internal Medicine - Ccmob04/07/2019 - Taylor Marx M.D.H69.93 Unspecified Eustachian tube disorder, bilateralComments:try claritin, zyrtec or keiry once a day to help with the ear congestionFollow up:physical in 4 -5 wks after labs , PFTsM54.5 Low back painNew Therapy:Physical GwzkvinL50.210 Nicotine dependence, cigarettes, uncomplicatedNew Xrays:CT Lung Screening-Low Dose, Ordered: 04/07/19Comments:Discussed lung cancer screening with patient, including:False positives, which may lead to further imaging studies and additional testing.Low radiation dosing.Adherence to follow-ups.Impact of comorbidities and ability or willingness to undergo diagnosis and treatment.Importance of maintaining cigarette smoking abstinence if former smoker OR Importance of smoking cessation if current smoker.R06.02 Shortness of breathNew Orders:Spirometry Pre/Post Bronchodilator, Ordered: 04/07/19Z13.1 Encounter for screening for diabetes xbljtyojX84.4 Encounter for screening for human immunodeficiency virus [HiZ11.59 Encounter for screening for other viral diseases
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
[2019-04-13 10:20] VITALS: BP 125/88
== END 2019-04-13 10:19 | disposition home or self-care (01) ==
LOC: ED 06:43
DX: S20.219A Contusion of unspecified front wall of thorax, initial encounter (principal); W19.XXXA Unspecified fall, initial encounter; F17.210 Nicotine dependence, cigarettes, uncomplicated
CPT/HCPCS: 99282; A9270-GY